=== PATIENT | female | born 1990 ===

== ENCOUNTER 2016-09-30 09:19 | Observation (INO) | payer OTHER ==
[2016-09-30 09:20] VITALS: BMI 25.8
--- NOTE | 2016-09-30 09:54 | C.PDOC ---
History Of Present Illness The patient, a 25 y/o female whose PMHx includes a congenital heart defect and PSHx includes open heart surgery, presents to the ED for evaluation of left- sided chest pain which caused her to awake from her sleep yesterday. Patient states her chest pain began yesterday and continued today with new onset of shortness of breath as well as left arm numbness and weakness, so she reports to the ED for further evaluation. Patient states her pain initially began in her back and then radiated towards her front. She describes her symptoms as a "pressure" which becomes tighter as she sits up. Patient states she spoke with Dr. Tai Rodrigez (fast food manager) yesterday and was informed that she needs a referral from her PMD (which she has yet to obtain) in order to be evaluated. She denies headache, dizziness, nausea, vomiting, neck pain, neck stiffness, and abdominal pain. Chief Complaint (Nursing): Chest Pain History Per: Patient History/Exam Limitations: no limitations Onset/Duration Of Symptoms: Hrs Current Symptoms Are (Timing): Still Present Quality: Tightness, Pressure, "Pain" Associated Symptoms: Dyspnea (shortness of breath ). denies: Nausea Additional History Per: Patient Past Medical History Reviewed: Historical Data, Nursing Documentation, Vital Signs Vital Signs: Last Vital Signs Temp 97.6 F 09/30/16 09:38 Pulse 66 09/30/16 09:38 Resp 11 L 09/30/16 09:38 BP 109/70 09/30/16 09:38 Pulse Ox 99 09/30/16 11:07 - Medical History PMH: Seizures Family History: States: Unknown Family Hx - Social History Hx Tobacco Use: No Hx Alcohol Use: No Hx Substance Use: No - Immunization History Hx Tetanus Toxoid Vaccination: No Hx Influenza Vaccination: No Hx Pneumococcal Vaccination: Yes Review Of Systems Except As Marked, All Systems Reviewed And Found Negative. Cardiovascular: Positive for: Chest Pain (left-sided) Respiratory: Positive for: Shortness of Breath Gastrointestinal: Negative for: Nausea, Vomiting, Abdominal Pain Musculoskeletal: Negative for: Neck Pain, Other (no neck stiffness) Neurological: Positive for: Weakness (left arm ), Numbness (left arm ). Negative for: Headache, Dizziness Physical Exam - Physical Exam Appears: Non-toxic, No Acute Distress Skin: Normal Color, Warm, Dry Head: Atraumatic, Normacephalic Eye(s): bilateral: Normal Inspection Nose: Normal, No Discharge Oral Mucosa: Moist Neck: Normal ROM, Supple Chest: Symmetrical, No Deformity, Tenderness (reproducible along left chest wall on palpation ) Cardiovascular: Rhythm Regular Respiratory: Normal Breath Sounds, No Rales, No Rhonchi, No Wheezing Gastrointestinal/Abdominal: Soft, No Tenderness, No Guarding, No Rebound Back: No Vertebral Tenderness, No Paraspinal Tenderness Extremity: Normal ROM, Tenderness (to right foot on palpation ), Capillary Refill (less than 2 seconds) Pulses: Left Dorsalis Pedis: Normal, Right Dorsalis Pedis: Normal Neurological/Psych: Oriented x3, Normal Speech, Normal Cognition Gait: Steady ED Course And Treatment - Laboratory Results Result Diagrams: 09/30/16 10:25 09/30/16 10:25 ECG: Interpreted By Me, Viewed By Me ECG Rhythm: Sinus Rhythm, R BBB Interpretation Of ECG: Sinus Rhythm at rate 62 BPM. Right Bundle Branch Block. Inverted T waves in inferior leads. Rate From EC O2 Sat by Pulse Oximetry: 99 Progress Note: labs, bloodwork, CXR, EKG, UA, and Echo ordered and reviewed. - Physician Consult Information Time Consulting Physician Contacted: 10:08 Physician Contacted: Tai Rodrigez Outcome Of Conversation: Case discussed with Dr. Rodrigez. He agrees with management and recommends ordering an echo. Disposition Discussed With : Tai Rodrigez Doctor Will See Patient In The: Hospital Counseled Patient/Family Regarding: Studies Performed, Diagnosis - Disposition Disposition: HOME/ ROUTINE Disposition Time: 11:34 Condition: STABLE - POA Present On Arrival: None - Clinical Impression Clinical Impression: Chest pain - Scribe Statement The provider has reviewed the documentation as recorded by the Scribe (Amy Fiore) Provider Attestation: All medical record entries made by the Scribe were at my direction and personally dictated by me. I have reviewed the chart and agree that the record accurately reflects my personal performance of the history, physical exam, medical decision making, and the department course for this patient. I have also personally directed, reviewed, and agree with the discharge instructions and disposition. Decision To Admit - Pt Status Changed To: Hospital Disposition Of: Inpatient - Admit Certification Admit to Inpatient:: After my assessment, the patient will require hospitalization for at least two midnights. This is because of the severity of symptoms shown, intensity of services needed, and/or the medical risk in this patient being treated as an outpatient. - InPatient: Physician Admission Certification: I certify that this patient requires 2 or more midnights of care for the following reason:: chest pain, congenital heart deasease, ACS - . Bed Request Type: Telemetry Patient Diagnosis: Chest pain
[2016-09-30 10:33] LABS: BASO % 0.5 % (0.0-2.0); EOS # 0.1 K/uL (0.0-0.7); HEMATOCRIT 38.1 % (34.0-47.0); LYMPH # 2.2 K/uL (1.0-4.3); LYMPH % 44.9 % (20.0-40.0); MEAN CORPUSCULAR HEMOGLOBIN 29.9 pg (27.0-31.0); MEAN CORPUSCULAR HGB CONC 33.6 g/dL (33.0-37.0); MEAN PLATELET VOLUME 8.6 fL (7.2-11.7); MONO # 0.3 K/uL (0.0-0.8); MONO % 6.7 % (0.0-10.0); NRBC % 0.1 % (0.0-2.0); RED CELL DISTRIBUTION WIDTH 13.7 % (11.5-14.5); WHITE BLOOD COUNT 4.9 K/uL (4.8-10.8)
[2016-09-30 10:41] LABS: RBC URINE 1 /hpf (0-3); URINE BILIRUBIN NEGATIVE (NEGATIVE); URINE BLOOD NEGATIVE (NEGATIVE); URINE COLOR Yellow (YELLOW); URINE GLUCOSE (UA) NORMAL (Normal); URINE KETONE NEGATIVE (NEGATIVE); URINE LEUKOCYTE ESTERASE NEG Leu/uL (Negative); URINE PROTEIN NEGATIVE (NEGATIVE); URINE UROBILINOGEN NORMAL mg/dL (0.2-1.0); WBC URINE 1 /hpf (0-5)
--- NOTE | 2016-09-30 10:50 | RAD ---
HISTORY: chest pain COMPARISON: None available. TECHNIQUE: Chest, one view. FINDINGS: LUNGS: No focal consolidation. Please note that chest x-ray has limited sensitivity for the detection of pulmonary masses. PLEURA: No significant pleural effusion identified. No definite pneumothorax . CARDIOVASCULAR: Heart size appears within normal limits. OSSEOUS STRUCTURES: No acute osseous abnormality identified. VISUALIZED UPPER ABDOMEN: Unremarkable. OTHER FINDINGS: None. IMPRESSION: No focal consolidation, significant pleural effusion, or definite pneumothorax identified.
[2016-09-30 11:13] LABS: CHLORIDE 105 mmol/L (98-107)
[2016-09-30 11:15] LABS: POTASSIUM 4.3 mmol/L (3.6-5.2); SODIUM 134 mmol/L (132-148)
[2016-09-30 11:17] LABS: ALB/GLOB RATIO 1.4 (1.0-2.1); ALKALINE PHOSPHATASE 39 U/L (38-126); AST/SGOT 29 U/L (14-36); BILIRUBIN,TOTAL 0.6 mg/dL (0.2-1.3); BLOOD UREA NITROGEN 12 mg/dL (7-17); CARBON DIOXIDE 25 mmol/L (22-30); CHOLESTEROL 185 mg/dL (0-199); GFR AFRICAN-AMERICAN > 60; GLUCOSE,RANDOM 91 mg/dL (65-105); TOTAL PROTEIN 7.4 g/dL (6.3-8.3)
[2016-09-30 11:18] LABS: ALT/SGPT 44 U/L (9-52)
[2016-09-30 11:51] LABS: THYROID STIMULATING HORMONE 1.36 mIU/L (0.46-4.68)
--- NOTE | 2016-09-30 13:59 | CP.PCM.PN ---
Subjective - Date & Time of Evaluation Date of Evaluation: 09/30/16 Time of Evaluation: 13:55 - Subjective Subjective: Internal Medicine History and Physical Dr. Britton CC: Objective - Vital Signs/Intake and Output Vital Signs (last 24 hours): Temp Pulse Resp BP Pulse Ox 97.6 F 66 11 L 109/70 99 09/30/16 09:38 09/30/16 09:38 09/30/16 09:38 09/30/16 09:38 09/30/16 11:37 Assessment and Plan - Assessment and Plan (Free Text) Plan: 1.) Atypical Chest Pain- likely pleuritic in nature 2/2 to pleuritis vs pneumonia vs AR vs PE vs GERD - Admit to telemetry - troponin x1 negative in ED < 0.0120 - SUSANA score- 1 - Heart Score 1 - Aspirin 81mg PO daily - Pain Control- motrin 600mg q6 prn and toradol 30mg q6 prn - 09/30/16 CXR- no significant consolidation, pneumothorax, effusion - 09/30/16 Ech- preliminary LV EF 62%- official read pending - 09/30/16 EKG- pending - D-dimer Negative - TSH- normal 1.36 - BNP- normal 129 - AM Labs: CBC/CMP/Troponin/Lipid Panel/Mg/Phos
--- NOTE | 2016-09-30 15:02 | CP.PCM.HP ---
<Mynor Gonzalez - Last Filed: 09/30/16 17:34> History of Present Illness - History of Present Illness History of Present Illness: Internal Medicine History and Physical Dr. Reba GIANG: Chest Pain since 5am 09/30/16 HPI: This is a 25yo F with a PMH significant for seizures and a heart defect repaired at 2mos of age presenting for medical evaluation of chest pain that began this morning at 5am. The patient reports that the pain has been constant , unchanging, non-radiating since its onset, and worse with standing. The patient notes that she also experienced left arm numbness and weakness. The numbness has resolved since she has been in the ED, but she still reports subjective weakness in her left upper extremity. The patient also notes that she has been increasingly short of breath. The pain is located at the left lower sternal border. The patient reports the pain as an 8/10. The patient has experienced similar pain in the past. She sought medical attention at that time as well, but she is unsure of the etiology of her previous pain. This pain , however, is worse than previous. The patient presently denies fever, chills, headache, palpitations, othopnea, cough, sputum production, abdominal pain, N/V/ D/C, and changes in bowel/bladder. PMH: Seizures, heart defect ("hole in the heart") Surg: Open Heart Surgery- 2mos of age Allergy: NKDA Social: Denies Tobacco/EtOH/Illicit Drugs Family: Paternal- Nondescript Heart Disease Present on Admission - Present on Admission Any Indicators Present on Admission: No History of DVT/PE: No History of Uncontrolled Diabetes: No Urinary Catheter: No Decubitus Ulcer Present: No Review of Systems - Constitutional Constitutional: absent: Chills, Fatigue, Fever - EENT Eyes: absent: Blurred Vision, Change in Vision Ears: absent: Ear Pain, Tinnitus Nose/Mouth/Throat: absent: Facial Pain, Neck Pain - Cardiovascular Cardiovascular: Chest Pain, Chest Pain at Rest, Chest Pain with Activity, Dyspnea. absent: Irregular Heart Rhythm, Leg Edema, Orthopnea, Palpitations, Radiating Pain, Rapid Heart Rate, Syncope - Respiratory Respiratory: Dyspnea, Dyspnea on Exertion, Pain with Coughing. absent: Hemoptysis, Wheezing, Chest Congestion - Gastrointestinal Gastrointestinal: absent: Abdominal Pain, Constipation, Diarrhea, Nausea - Genitourinary Genitourinary: absent: Change in Urinary Stream, Difficulty Urinating - Musculoskeletal Musculoskeletal: absent: Atrophy, Back Pain, Stiffness, Tingling - Integumentary Integumentary: absent: Lesions, Rash, Wounds - Neurological Neurological: absent: Frequent Falls, Headaches, Memory Loss, Sensory Deficit, Syncope, Tingling, Tremor, Vertigo, Weakness - Endocrine Endocrine: absent: Cold Intolorance, Heat Intolorance Past Patient History - Infectious Disease Hx of Infectious Diseases: None - Tetanus Immunizations Tetanus Immunization: Unknown - Past Medical History & Family History Past Medical History?: No - Past Social History Smoking Status: Never Smoked Chewing Tobacco Use: No Cigar Use: No Alcohol: Occasional Home Situation {Lives}: With Family - CARDIAC Hx Heart Murmur: Yes Other/Comment: Cogenital heart defect - PULMONARY Hx Respiratory Disorders: No - NEUROLOGICAL Hx Seizures: Yes (last seizure 3 years ago) - HEENT Hx HEENT Problems: No - RENAL Hx Chronic Kidney Disease: No - ENDOCRINE/METABOLIC Hx Endocrine Disorders: No - HEMATOLOGICAL/ONCOLOGICAL Hx Blood Disorders: No - INTEGUMENTARY Hx Dermatological Problems: No - MUSCULOSKELETAL/RHEUMATOLOGICAL Hx Musculoskeletal Disorders: No - GASTROINTESTINAL Hx Gastrointestinal Disorders: No - GENITOURINARY/GYNECOLOGICAL Hx Genitourinary Disorders: No - PSYCHIATRIC Hx Psychophysiologic Disorder: No Hx Substance Use: No - SURGICAL HISTORY Hx Surgeries: Yes Hx Open Heart Surgery: Yes (2mos of age ) - ANESTHESIA Hx Anesthesia: Yes Hx Anesthesia Reactions: No Hx Malignant Hyperthermia: No Meds Allergies/Adverse Reactions: Allergies Allergy/AdvReac Type Severity Reaction Status Date / Time No Known Allergies Allergy Verified 09/15/16 21:06 Physical Exam - Constitutional Appears: Well, No Acute Distress - Head Exam Head Exam: ATRAUMATIC, NORMAL INSPECTION, NORMOCEPHALIC - Eye Exam Eye Exam: EOMI, Normal appearance - ENT Exam ENT Exam: Mucous Membranes Moist - Neck Exam Neck exam: Positive for: Full Rom, Normal Inspection. Negative for: Lymphadenopathy, Tenderness - Respiratory Exam Respiratory Exam: Rhonchi, NORMAL BREATHING PATTERN. absent: Accessory Muscle Use, Clear to Auscultation Bilateral, Rales, Wheezes, Respiratory Distress, Stridor Additional comments: rhonchi heard B/L bases - Cardiovascular Exam Cardiovascular Exam: REGULAR RHYTHM, RRR, +S1, +S2. absent: Diastolic murmur, Systolic Murmur Additional comments: reproducible point tenderness left lower sternal border, mid clavicular line - GI/Abdominal Exam GI & Abdominal Exam: Normal Bowel Sounds, Soft. absent: Distended, Firm, Guarding, Hernia, Rebound, Rigid, Tenderness - Extremities Exam Extremities exam: Positive for: normal capillary refill, normal inspection, pedal pulses present. Negative for: calf tenderness, pedal edema, tenderness Additional comments: 5/5 strength B/L upper and lower extremity sensation intact B/L upper and lower extremity - Neurological Exam Neurological exam: Alert, CN II-XII Intact, Normal Gait, Oriented x3 - Skin Skin Exam: Dry, Intact, Normal Color, Warm Results - Vital Signs Recent Vital Signs: Last Vital Signs Temp 97.6 F 09/30/16 09:38 Pulse 66 09/30/16 09:38 Resp 11 L 09/30/16 09:38 BP 109/70 09/30/16 09:38 Pulse Ox 99 09/30/16 11:37 - Labs Result Diagrams: 09/30/16 10:25 09/30/16 10:25 Assessment & Plan - Assessment and Plan (Free Text) Assessment: This is a 25yo F with a PMH significant for seizures and a heart defect repaired at 2mos of age presenting for medical evaluation of chest pain that began this morning at 5am. Plan: 1.) Atypical Chest Pain- likely pleuritic in nature 2/2 to pleuritis vs pneumonia vs CO vs PE vs GERD - Admit to inpatient telemetry - Troponin x1 negative in ED < 0.0120 - SUSANA score- 1 - Heart Score 1 - Aspirin 325mg PO STAT - Aspirin 81mg PO daily - Pain Control- toradol 30mg q6 prn - 09/30/16 CXR- no significant consolidation, pneumothorax, effusion - 09/30/16 Echo- preliminary LV EF 62%- official read pending - 09/30/16 EKG- right bundle branch block- official read pending (no prior EKG for comparison) - D-dimer Negative - TSH- normal 1.36 - BNP- normal 129 - UDS ordered - Flu A&B Ab ordered - Repeat EKG - Cardiology Consult- Dr. Rodrigez - AM Labs: CBC/CMP/Troponin/Lipid Panel/Mg/Phos 2.) Shortness of Breath- likely 2/2 to URI vs Influenza vs PE vs CO - 09/30/16 Echo- preliminary LV EF 62%- official read pending - 09/30/16 EKG- right bundle branch block- official read pending (no prior EKG for comparison) - 09/30/16 CXR- no significant consolidation, pneumothorax, effusion - D-dimer Negative - Duoneb q2 PRN SOB - Flu A&B Ab ordered 3.) Epilepsy - continue home Carbamazepine 200mg PO TID 4.) Prophylaxis - DVT- Heparin 5000u SC q12 - GI- Protonix 40mg IV daily - Fever- Tylenol 650mg PO q6 PRN - Constipation- Colace 100mg PO BID PRN - Nausea- Zofran 4mg IV q6 PRN - Diet- Heart Healthy Diet - Insomnia- Benadryl 25mg PO HS PRN Ovidio Carlos PGY1 [id number] - Date & Time Date: 09/30/16 Time: 15:05 Decision To Admit - Pt Status Changed To: Hospital Disposition Of: Inpatient - Admit Certification Admit to Inpatient:: After my assessment, the patient will require hospitalization for at least two midnights. This is because of the severity of symptoms shown, intensity of services needed, and/or the medical risk in this patient being treated as an outpatient. - InPatient: Physician Admission Certification:: chest pain r/o ACS - . Bed Request Type: Telemetry Admitting Physician: Josue Britton <Josue Britton - Last Filed: 09/30/16 18:52> Results - Vital Signs Recent Vital Signs: Last Vital Signs Temp 97.6 F 09/30/16 09:38 Pulse 66 09/30/16 09:38 Resp 11 L 09/30/16 09:38 BP 109/70 09/30/16 09:38 Pulse Ox 99 09/30/16 11:37 - Labs Result Diagrams: 09/30/16 10:25 09/30/16 10:25 Labs: Laboratory Results - last 24 hr 09/30/16 09/30/16 16:47 Unknown Total Creatine Kinase 47 CK-MB (Mass) < 0.22 Troponin I, Quant < 0.0120 Influenza Typ A,B (EIA) Negative for flu a/b Attending/Attestation - Attestation I have personally seen and examined this patient.: Yes I have fully participated in the care of the patient.: Yes I have reviewed all pertinent clinical information: Yes Notes (Text): Medical attending: Patient was seen and examined by me, agrees the above note by medical technician assistant. The patient is coming in with regards to chest pain, from what I understand she has a history of some type of congenital heart defect that required surgery at a very young age. Her lab work that was acquired in the ER was stable. We can get a 2-D echo, she will be having a cardiology evaluation as well. thank you Josue Britton
--- NOTE | 2016-09-30 15:35 | CARD ---
APPROVED REPORT EXAM: Two-dimensional and M-mode echocardiogram with Doppler and color Doppler. Other Information Quality : GoodRhythm : INDICATION Abnormal EKG/Arrhythmia Chest Pain Congenital Heart Disease M-Mode DIMENSIONS RVDd1.79 (2.1-3.2cm)Left Atrium (MM)4.25 (2.5-4.0cm) IVSd0.58 (0.7-1.1cm)Aortic Root2.89 (2.2-3.7cm) LVDd5.65 (4.0-5.6cm)Aortic Cusp Exc.2.16 (1.5-2.0cm) PWd0.64 (0.7-1.1cm)FS (%) 34 % LVDs3.74 (2.0-3.8cm)LVEF (%)62 (>50%) Mitral Valve MV E Ifhpyjhn40.3cm/sMV A Kytgzcej07.0cm/sE/A ratio1.3 TDI E/Lateral E'0.0E/Medial E'0.0 Tricuspid Valve TR Peak [id number]/sTR Peak [id number] LEFT VENTRICLE lv is upper normal in size. There is normal left ventricular wall thickness. The Ejection Fraction is 55-60%. There is normal LV segmental wall motion. The left ventricular diastolic function is normal. RIGHT VENTRICLE The right ventricle is normal size. The right ventricular systolic function is normal. ATRIA The left atrium is mildly dilated. The right atrium size is normal. Interatrial septal thickening is noted. AORTIC VALVE The aortic valve is normal in structure. There is trace aortic regurgitation. MITRAL VALVE The mitral valve is normal in structure. Mitral regurgitation is mild. TRICUSPID VALVE The tricuspid valve is normal in structure. There is mild tricuspid regurgitation. Right ventricular systolic pressure is estimated at 26 mmHg. There is no pulmonary hypertension. PULMONIC VALVE The pulmonary valve is normal in structure. There is mild pulmonic valvular regurgitation. GREAT VESSELS The aortic root is normal in size. The IVC is normal in size and collapses >50% with inspiration. PERICARDIAL EFFUSION There is no pericardial effusion. <Conclusion> lv is upper normal in size. There is normal left ventricular wall thickness. The Ejection Fraction is 55-60%. The left ventricular diastolic function is normal. The left atrium is mildly dilated. Interatrial septal thickening is noted. There is trace aortic regurgitation. Mitral regurgitation is mild. There is mild tricuspid regurgitation. Right ventricular systolic pressure is estimated at 26 mmHg. There is no pulmonary hypertension.
[2016-09-30] MEDS ORDERED: Albuterol-Ipratrop 3 mg / 0.5 (3 ml) UD INH PRN (17:44)
[2016-10-01 01:01] VITALS: RESP 20
[2016-10-01] MEDS ORDERED: Pneumococcal 23-Valent Vaccine IM ONE (03:59)
[2016-10-01 07:52] LABS: BASO % 0.5 % (0.0-2.0); EOS # 0.1 K/uL (0.0-0.7); EOS % 2.6 % (0.0-4.0); HEMATOCRIT 37.7 % (34.0-47.0); LYMPH # 2.6 K/uL (1.0-4.3); LYMPH % 48.3 % (20.0-40.0); MEAN CORPUSCULAR HEMOGLOBIN 29.5 pg (27.0-31.0); MEAN CORPUSCULAR HGB CONC 33.5 g/dL (33.0-37.0); MEAN PLATELET VOLUME 8.9 fL (7.2-11.7); MONO # 0.4 K/uL (0.0-0.8); MONO % 6.8 % (0.0-10.0); RED CELL DISTRIBUTION WIDTH 13.5 % (11.5-14.5); WHITE BLOOD COUNT 5.3 K/uL (4.8-10.8)
[2016-10-01 08:04] LABS: CHLORIDE 106 mmol/L (98-107)
[2016-10-01 08:05] LABS: POTASSIUM 3.8 mmol/L (3.6-5.2); SODIUM 141 mmol/L (132-148)
[2016-10-01 08:07] LABS: ALB/GLOB RATIO 1.3 (1.0-2.1); ALKALINE PHOSPHATASE 39 U/L (38-126); ALT/SGPT 43 U/L (9-52); AST/SGOT 15 U/L (14-36); BILIRUBIN,TOTAL 0.2 mg/dL (0.2-1.3); BLOOD UREA NITROGEN 13 mg/dL (7-17); CARBON DIOXIDE 24 mmol/L (22-30); CHOLESTEROL 182 mg/dL (0-199); GFR AFRICAN-AMERICAN > 60; GLUCOSE,RANDOM 92 mg/dL (65-105); PHOSPHOROUS 4.3 mg/dL (2.5-4.5); TOTAL PROTEIN 7.1 g/dL (6.3-8.3)
[2016-10-01 08:08] LABS: CALCIUM 8.4 mg/dl (8.6-10.4); MAGNESIUM 1.9 mg/dL (1.6-2.3)
--- NOTE | 2016-10-01 16:21 | CP.PCM.DIS ---
<Aracely Sparrow - Last Filed: 10/05/16 08:34> Provider - Provider Date of Admission: 09/30/16 11:37 Attending physician: Josue Britton DO Primary care physician: None Consults: Dr. Rodrigez Time Spent in preparation of Discharge (in minutes): 45 Hospital Course - Lab Results Lab Results: Most Recent Lab Values WBC 5.3 K/uL (4.8-10.8) 10/01/16 07:43 RBC 4.28 Mil/uL (3.80-5.20) 10/01/16 07:43 Hgb 12.6 g/dL (11.0-16.0) 10/01/16 07:43 Hct 37.7 % (34.0-47.0) 10/01/16 07:43 MCV 88.0 fL (81.0-99.0) 10/01/16 07:43 MCH 29.5 pg (27.0-31.0) 10/01/16 07:43 MCHC 33.5 g/dL (33.0-37.0) 10/01/16 07:43 RDW 13.5 % (11.5-14.5) 10/01/16 07:43 Plt Count 192 K/uL (130-400) 10/01/16 07:43 MPV 8.9 fL (7.2-11.7) 10/01/16 07:43 Neut % (Auto) 41.8 % (50.0-75.0) L 10/01/16 07:43 Lymph % (Auto) 48.3 % (20.0-40.0) H 10/01/16 07:43 [place] % (Auto) 6.8 % (0.0-10.0) 10/01/16 07:43 Eos % (Auto) 2.6 % (0.0-4.0) 10/01/16 07:43 Baso % (Auto) 0.5 % (0.0-2.0) 10/01/16 07:43 Neut # 2.2 K/uL (1.8-7.0) 10/01/16 07:43 Lymph # 2.6 K/uL (1.0-4.3) 10/01/16 07:43 [place] # 0.4 K/uL (0.0-0.8) 10/01/16 07:43 Eos # 0.1 K/uL (0.0-0.7) 10/01/16 07:43 Baso # 0.0 K/uL (0.0-0.2) 10/01/16 07:43 APTT 40 SECONDS (21-34) H 10/01/16 07:43 D-Dimer, Quantitative < 200 ng/mlDDU (0-243) 09/30/16 10:25 Sodium 141 mmol/L (132-148) 10/01/16 07:43 Potassium 3.8 mmol/L (3.6-5.2) 10/01/16 07:43 Chloride 106 mmol/L (98-107) 10/01/16 07:43 Carbon Dioxide 24 mmol/L (22-30) 10/01/16 07:43 Anion Gap 14 (10-20) 10/01/16 07:43 BUN 13 mg/dL (7-17) 10/01/16 07:43 Creatinine 0.7 MG/DL (0.7-1.2) 10/01/16 07:43 Est GFR ( Amer) > 60 10/01/16 07:43 Est GFR (Non-Af Amer) > 60 10/01/16 07:43 Random Glucose 92 mg/dL (65-105) 10/01/16 07:43 Calcium 8.4 mg/dl (8.6-10.4) L 10/01/16 07:43 Phosphorus 4.3 mg/dL (2.5-4.5) 10/01/16 07:43 Magnesium 1.9 mg/dL (1.6-2.3) 10/01/16 07:43 Total Bilirubin 0.2 mg/dL (0.2-1.3) 10/01/16 07:43 AST 15 U/L (14-36) 10/01/16 07:43 ALT 43 U/L (9-52) 10/01/16 07:43 Alkaline Phosphatase 39 U/L (38-126) 10/01/16 07:43 Total Creatine Kinase 49 U/L (30-135) 09/30/16 21:22 CK-MB (Mass) < 0.22 ng/mL (0.0-3.38) 09/30/16 21:22 Troponin I < 0.0120 ng/mL (0.00-0.120) 09/30/16 10:25 Troponin I, Quant < 0.0120 ng/mL (0.00-0.120) 09/30/16 21:22 NT-Pro-B Natriuret Pep 129 pg/mL (0-450) 09/30/16 10:25 Total Protein 7.1 g/dL (6.3-8.3) 10/01/16 07:43 Albumin 4.1 g/dL (3.5-5.0) 10/01/16 07:43 Globulin 3.1 gm/dL (2.2-3.9) 10/01/16 07:43 Albumin/Globulin Ratio 1.3 (1.0-2.1) 10/01/16 07:43 Triglycerides 71 mg/dL (0-149) D 10/01/16 07:43 Cholesterol 182 mg/dL (0-199) 10/01/16 07:43 LDL Cholesterol Direct 109 mg/dL (0-129) 10/01/16 07:43 HDL Cholesterol 49 mg/dL (30-70) 10/01/16 07:43 TSH 3rd Generation 1.36 mIU/L (0.46-4.68) 09/30/16 10:25 Urine Color Yellow (YELLOW) 09/30/16 10:25 Urine Clarity Hazy (Clear) 09/30/16 10:25 Urine pH 6.0 (5.0-8.0) 09/30/16 10:25 Ur Specific [place] 1.024 (1.003-1.030) 09/30/16 10:25 Urine Protein Negative mg/dL (NEGATIVE) 09/30/16 10:25 Urine Glucose (UA) Normal mg/dL (Normal) 09/30/16 10:25 Urine Ketones Negative mg/dL (NEGATIVE) 09/30/16 10:25 Urine Blood Negative (NEGATIVE) 09/30/16 10:25 Urine Nitrate Negative (NEGATIVE) 09/30/16 10:25 Urine Bilirubin Negative (NEGATIVE) 09/30/16 10:25 Urine Urobilinogen Normal mg/dL (0.2-1.0) 09/30/16 10:25 Ur Leukocyte Esterase Neg Tim/uL (Negative) 09/30/16 10:25 Urine WBC (Auto) 1 /hpf (0-5) 09/30/16 10:25 Urine RBC (Auto) 1 /hpf (0-3) 09/30/16 10:25 Ur Squamous Epith Cells 6 /hpf (0-5) H 09/30/16 10:25 Urine Sperm (Auto) Rare /hpf (NONE) H 09/30/16 10:25 Urine HCG, Qual Negative (NEGATIVE) 10/01/16 13:36 Urine Opiates Screen Negative (NEGATIVE) 09/30/16 20:25 Urine Methadone Screen Negative (NEGATIVE) 09/30/16 20:25 Ur Barbiturates Screen Negative (NEGATIVE) 09/30/16 20:25 Ur Phencyclidine Scrn Negative (NEGATIVE) 09/30/16 20:25 Ur Amphetamines Screen Negative (NEGATIVE) 09/30/16 20:25 U Benzodiazepines Scrn Negative (NEGATIVE) 09/30/16 20:25 U Oth Cocaine Metabols Negative (NEGATIVE) 09/30/16 20:25 U Cannabinoids Screen Negative (NEGATIVE) 09/30/16 20:25 Influenza Typ A,B (EIA) Negative for flu a/b (NEGATIVE) 09/30/16 Unknown - Hospital Course Hospital Course: As per H&P "This is a 25yo F with a PMH significant for seizures and a heart defect repaired at 2mos of age presenting for medical evaluation of chest pain that began this morning at 5am. The patient reports that the pain has been constant, unchanging, non-radiating since its onset, and worse with standing. The patient notes that she also experienced left arm numbness and weakness. The numbness has resolved since she has been in the ED, but she still reports subjective weakness in her left upper extremity. The patient also notes that she has been increasingly short of breath. The pain is located at the left lower sternal border. The patient reports the pain as an 8/10. The patient has experienced similar pain in the past. She sought medical attention at that time as well, but she is unsure of the etiology of her previous pain. This pain , however, is worse than previous. The patient presently denies fever, chills, headache, palpitations, othopnea, cough, sputum production, abdominal pain, N/V/ D/C, and changes in bowel/bladder." Patient admitted to TELE. Patient had negative troponin x 3 and EKG had no acute changes x 3. Patient has a negative d-dimer and patient's Echo an EF 55-60 % with normal LV wall thickness and no pulmonary HTN. Patient's chest CT showed chronic chest wall and sternal deformity consistent with variation of pectus excavatum and no evidence of IS lung disease. Patient's CXR was also benign. Patient stable for discharge as per Dr. Britton 10/01/16. Patient to continue taking home medication: Carbamazepine 200mg PO 1 tab TID DIsp#90. Patient to follow up with PMD within 7 days and Clinical Specialist within 10 days. If symptoms recur or worsen patient to visit ED immediately. Patient understands and agrees. Discharge Exam - Head Exam Head Exam: ATRAUMATIC, NORMAL INSPECTION, NORMOCEPHALIC - Eye Exam Eye Exam: Normal appearance. absent: Conjunctival injection, Scleral icterus Pupil Exam: NORMAL ACCOMODATION - ENT Exam ENT Exam: Mucous Membranes Moist - Neck Exam Neck exam: Normal Inspection - Respiratory Exam Respiratory Exam: Rhonchi (slight), NORMAL BREATHING PATTERN. absent: Accessory Muscle Use, Chest Wall Tenderness, Prolonged Expiratory Phase, Rales, Wheezes, Respiratory Distress - Cardiovascular Exam Cardiovascular Exam: REGULAR RHYTHM, RRR, +S1, +S2. absent: Diastolic murmur, Systolic Murmur - GI/Abdominal Exam GI & Abdominal Exam: Normal Bowel Sounds, Soft. absent: Distended, Firm, Guarding, Rigid, Tenderness - Extremities Exam Extremities exam: normal capillary refill, normal inspection, pedal pulses present - Back Exam Back exam: NORMAL INSPECTION. absent: rash noted - Neurological Exam Neurological exam: Alert, CN II-XII Intact, Normal Gait, Oriented x3 - Skin Skin Exam: Dry, Intact, Normal Color, Warm Discharge Plan - Discharge Medications Prescriptions: carBAMazepine [Tegretol] 200 mg PO TID #90 tab - Follow Up Plan Condition: STABLE Disposition: HOME/ ROUTINE Instructions: Carbamazepine (By mouth), Chest Pain (DC), Heart Healthy Diet (DC ) Additional Instructions: Patient stable for discharge as per Dr. Britton. Patient to continue taking home medication: Carbamazepine 200mg PO 1 tab TID DIsp#90. Patient to follow up with PMD within 7 days and Clinical Specialist within 10 days. If symptoms recur or worsen patient to visit ED immediately. Patient understands and agrees. Referrals: Josue Britton DO [Staff Provider] - Tai Rodrigez MD [Staff Provider] - <Josue Britton - Last Filed: 10/12/16 07:55> Provider - Provider Date of Admission: 09/30/16 11:37 Attending physician: Josue Britton DO Hospital Course - Lab Results Lab Results: Most Recent Lab Values WBC 5.3 K/uL (4.8-10.8) 10/01/16 07:43 RBC 4.28 Mil/uL (3.80-5.20) 10/01/16 07:43 Hgb 12.6 g/dL (11.0-16.0) 10/01/16 07:43 Hct 37.7 % (34.0-47.0) 10/01/16 07:43 MCV 88.0 fL (81.0-99.0) 10/01/16 07:43 MCH 29.5 pg (27.0-31.0) 10/01/16 07:43 MCHC 33.5 g/dL (33.0-37.0) 10/01/16 07:43 RDW 13.5 % (11.5-14.5) 10/01/16 07:43 Plt Count 192 K/uL (130-400) 10/01/16 07:43 MPV 8.9 fL (7.2-11.7) 10/01/16 07:43 Neut % (Auto) 41.8 % (50.0-75.0) L 10/01/16 07:43 Lymph % (Auto) 48.3 % (20.0-40.0) H 10/01/16 07:43 [place] % (Auto) 6.8 % (0.0-10.0) 10/01/16 07:43 Eos % (Auto) 2.6 % (0.0-4.0) 10/01/16 07:43 Baso % (Auto) 0.5 % (0.0-2.0) 10/01/16 07:43 Neut # 2.2 K/uL (1.8-7.0) 10/01/16 07:43 Lymph # 2.6 K/uL (1.0-4.3) 10/01/16 07:43 [place] # 0.4 K/uL (0.0-0.8) 10/01/16 07:43 Eos # 0.1 K/uL (0.0-0.7) 10/01/16 07:43 Baso # 0.0 K/uL (0.0-0.2) 10/01/16 07:43 APTT 40 SECONDS (21-34) H 10/01/16 07:43 D-Dimer, Quantitative < 200 ng/mlDDU (0-243) 09/30/16 10:25 Sodium 141 mmol/L (132-148) 10/01/16 07:43 Potassium 3.8 mmol/L (3.6-5.2) 10/01/16 07:43 Chloride 106 mmol/L (98-107) 10/01/16 07:43 Carbon Dioxide 24 mmol/L (22-30) 10/01/16 07:43 Anion Gap 14 (10-20) 10/01/16 07:43 BUN 13 mg/dL (7-17) 10/01/16 07:43 Creatinine 0.7 MG/DL (0.7-1.2) 10/01/16 07:43 Est GFR ( Amer) > 60 10/01/16 07:43 Est GFR (Non-Af Amer) > 60 10/01/16 07:43 Random Glucose 92 mg/dL (65-105) 10/01/16 07:43 Calcium 8.4 mg/dl (8.6-10.4) L 10/01/16 07:43 Phosphorus 4.3 mg/dL (2.5-4.5) 10/01/16 07:43 Magnesium 1.9 mg/dL (1.6-2.3) 10/01/16 07:43 Total Bilirubin 0.2 mg/dL (0.2-1.3) 10/01/16 07:43 AST 15 U/L (14-36) 10/01/16 07:43 ALT 43 U/L (9-52) 10/01/16 07:43 Alkaline Phosphatase 39 U/L (38-126) 10/01/16 07:43 Total Creatine Kinase 49 U/L (30-135) 09/30/16 21:22 CK-MB (Mass) < 0.22 ng/mL (0.0-3.38) 09/30/16 21:22 Troponin I < 0.0120 ng/mL (0.00-0.120) 10/01/16 17:51 Troponin I, Quant < 0.0120 ng/mL (0.00-0.120) 09/30/16 21:22 NT-Pro-B Natriuret Pep 129 pg/mL (0-450) 09/30/16 10:25 Total Protein 7.1 g/dL (6.3-8.3) 10/01/16 07:43 Albumin 4.1 g/dL (3.5-5.0) 10/01/16 07:43 Globulin 3.1 gm/dL (2.2-3.9) 10/01/16 07:43 Albumin/Globulin Ratio 1.3 (1.0-2.1) 10/01/16 07:43 Triglycerides 71 mg/dL (0-149) D 10/01/16 07:43 Cholesterol 182 mg/dL (0-199) 10/01/16 07:43 LDL Cholesterol Direct 109 mg/dL (0-129) 10/01/16 07:43 HDL Cholesterol 49 mg/dL (30-70) 10/01/16 07:43 TSH 3rd Generation 1.36 mIU/L (0.46-4.68) 09/30/16 10:25 Urine Color Yellow (YELLOW) 09/30/16 10:25 Urine Clarity Hazy (Clear) 09/30/16 10:25 Urine pH 6.0 (5.0-8.0) 09/30/16 10:25 Ur Specific [place] 1.024 (1.003-1.030) 09/30/16 10:25 Urine Protein Negative mg/dL (NEGATIVE) 09/30/16 10:25 Urine Glucose (UA) Normal mg/dL (Normal) 09/30/16 10:25 Urine Ketones Negative mg/dL (NEGATIVE) 09/30/16 10:25 Urine Blood Negative (NEGATIVE) 09/30/16 10:25 Urine Nitrate Negative (NEGATIVE) 09/30/16 10:25 Urine Bilirubin Negative (NEGATIVE) 09/30/16 10:25 Urine Urobilinogen Normal mg/dL (0.2-1.0) 09/30/16 10:25 Ur Leukocyte Esterase Neg Tim/uL (Negative) 09/30/16 10:25 Urine WBC (Auto) 1 /hpf (0-5) 09/30/16 10:25 Urine RBC (Auto) 1 /hpf (0-3) 09/30/16 10:25 Ur Squamous Epith Cells 6 /hpf (0-5) H 09/30/16 10:25 Urine Sperm (Auto) Rare /hpf (NONE) H 09/30/16 10:25 Urine HCG, Qual Negative (NEGATIVE) 10/01/16 13:36 Urine Opiates Screen Negative (NEGATIVE) 09/30/16 20:25 Urine Methadone Screen Negative (NEGATIVE) 09/30/16 20:25 Ur Barbiturates Screen Negative (NEGATIVE) 09/30/16 20:25 Ur Phencyclidine Scrn Negative (NEGATIVE) 09/30/16 20:25 Ur Amphetamines Screen Negative (NEGATIVE) 09/30/16 20:25 U Benzodiazepines Scrn Negative (NEGATIVE) 09/30/16 20:25 U Oth Cocaine Metabols Negative (NEGATIVE) 09/30/16 20:25 U Cannabinoids Screen Negative (NEGATIVE) 09/30/16 20:25 Influenza Typ A,B (EIA) Negative for flu a/b (NEGATIVE) 09/30/16 Unknown Attending/Attestation - Attestation I have personally seen and examined this patient.: Yes I have fully participated in the care of the patient.: Yes I have reviewed all pertinent clinical information, including history, physical exam and plan: Yes Notes (Text): 10/12/16 07:53 Medical Attending: Patient was seen and examined by me. Please note, this is a late signing of the DC summary. Agree with the above note by the resident. Patient will need to follow up out patient.
[2016-10-01 16:24] VITALS: O2SAT 97
--- NOTE | 2016-10-01 16:28 | CT ---
PROCEDURE: CT Chest without contrast HISTORY: r/o interstitial lung disease COMPARISON: None. TECHNIQUE: Contiguous axial images were obtained through the chest without intravenous contrast enhancement. Sagittal and coronal reconstructions were performed. Radiation dose (DLP): 285 mGy-cm. FINDINGS: LUNGS: Clear lungs. Visualized airway clear. MEDIASTINUM: Unremarkable thoracic aorta. No aneurysm. Normal sized heart. Main pulmonary artery unremarkable. No vascular congestion. No lymphadenopathy. PLEURA: No pleural fluid. No pneumothorax. BONES: There is an anterior chest wall and sternal deformity consistent with a variation of pectus excavatum. Sternal wires were also seen. There is asymmetry in the chest with the low right rodriguez thorax larger than the left. UPPER ABDOMEN: Grossly unremarkable. OTHER FINDINGS: None. IMPRESSION: Chronic chest wall and sternal deformity consistent with variation of pectus excavatum. No evidence of interstitial lung disease.
[2016-10-01 17:49] VITALS: BP 108/67; PULSE 73; TEMP 97
[2016-10-02] MEDS ORDERED: Influenza Virus Vaccine 45 mcg/0.5 ml Syr IM ONE (10:00)
[2016-10-02] MEDS ORDERED: Pneumococcal 23-Valent Vaccine IM ONE (10:00)
--- NOTE | 2016-10-02 11:20 | CARD ---
APPROVED REPORT EKG Measurement Heart [id number] [id number] <Conclusion> Normal sinus rhythm Right bundle branch block Minimal voltage criteria for LVH, may be normal variant Abnormal ECG
--- NOTE | 2016-10-02 11:20 | CARD ---
APPROVED REPORT EKG Measurement Heart [id number] [id number] <Conclusion> Normal sinus rhythm Right bundle branch block Minimal voltage criteria for LVH, may be normal variant Abnormal ECG
== END 2016-10-01 21:51 | disposition home or self-care (01) ==
LOC: C.ER 09:19 → C.9E 11:37 → INTOOBSV 11:37 → C.6T 22:52
PROVIDERS: ADMIT Hospitalist; ATTEND Hospitalist
DX: R07.89 Other chest pain (principal); G40.909 Epilepsy, unspecified, not intractable, without status epilepticus; Z82.49 Family history of ischemic heart disease and other diseases of the circulatory system; I45.10 Unspecified right bundle-branch block
CPT/HCPCS: 36415; 71010; 71250; 80053; 80061; 80324; 80345; 80346; 80349; 80353; 80358; 80361; 81001; 83735; 83880; 83992; 84100; 84443; 84484; 84703; 85025; 85378; 85730; 87804; 93005; 93306; 96372; 96374; 99285; C9113; G0378; J1644; J1885; J2405

== ENCOUNTER 2016-12-09 20:44 | Emergency (ER) | payer OTHER ==
[2016-12-09 20:45] VITALS: BMI 28.4
[2016-12-09 21:00] VITALS: O2SAT 99
[2016-12-09] MEDS ORDERED: Tetanus/Diphtheria Toxoids 0.5 ml Syringe IM ONE ×2 (21:33→21:42)
[2016-12-09] MEDS ORDERED: Bacitracin 500 Units/gm Oint Foilpak UD TOP STA (21:33)
[2016-12-09] MEDS ORDERED: Bacitracin 500 Units/gm Oint Foilpak UD ONE (21:35)
--- NOTE | 2016-12-09 21:35 | C.PDOC ---
History Of Present Illness 26 year old female presents to the ED with complaints of left great toe pain. Patient states on 12/05/16 she accidentally closed a door on her toe which slightly lifted her left great toenail up causing her to bleed under the nail. Denies change in sensation, removal of toenail, or any other complaints at this time. Time Seen by Provider: 12/09/16 21:04 Chief Complaint (Nursing): Lower Extremity Problem/Injury History Per: Patient History/Exam Limitations: no limitations Onset/Duration Of Symptoms: Days Current Symptoms Are (Timing): Still Present Severity: Mild Past Medical History Reviewed: Historical Data, Nursing Documentation, Vital Signs Vital Signs: Last Vital Signs Temp 98.6 F 12/09/16 21:48 Pulse 74 12/09/16 21:48 Resp 18 12/09/16 21:48 BP 111/79 12/09/16 21:48 Pulse Ox 99 12/09/16 23:20 - Medical History PMH: Anemia, Seizures (last seizure 6 years ago) Family History: States: Unknown Family Hx - Social History Hx Tobacco Use: No Hx Alcohol Use: No Hx Substance Use: No - Immunization History Hx Tetanus Toxoid Vaccination: No Hx Influenza Vaccination: No Hx Pneumococcal Vaccination: Yes Review Of Systems Except As Marked, All Systems Reviewed And Found Negative. Constitutional: Negative for: Fever, Chills Musculoskeletal: Positive for: Other (+Left great toe pain) Neurological: Negative for: Weakness, Numbness Physical Exam - Physical Exam Appears: Non-toxic, No Acute Distress Skin: Normal Color, Warm, Dry Head: Atraumatic, Normacephalic Oral Mucosa: Moist Chest: Symmetrical Respiratory: No Accessory Muscle Use Extremity: Normal ROM, No Pedal Edema, No Calf Tenderness, Capillary Refill (< 2 seconds), No Deformity, Other (+Dried blood under the left great toe nail. no signs of infection. +Varicose veins bilaterally) Pulses: Left Dorsalis Pedis: Normal, Right Dorsalis Pedis: Normal Neurological/Psych: Oriented x3, Normal Speech, Normal Cognition ED Course And Treatment O2 Sat by Pulse Oximetry: 99 (Room air) Pulse Ox Interpretation: Normal Progress Note: Patient given Tetanus Vaccine and Bacitracin was applied. Patient advised to follow up with her Medical Office Specialist and Vascular Surgeon in 1-2 days. Disposition - Disposition Referrals: Cristhian Banda Jr., MD [Staff Provider] - Eduar Guillory DPM [Staff Provider] - Disposition: HOME/ ROUTINE Disposition Time: 21:34 Condition: STABLE Additional Instructions: Follow up with your PMD, Medical Office Specialist and Vascular Surgeon within 1-2 days. Return to ED if feel worse. Prescriptions: Bacitracin OINT 1 applic TP TID #45 g Instructions: Nail Avulsion (ED) - Clinical Impression Clinical Impression: Nail avulsion, toe - PA / LONG DISTANCE BILLING OPERATOR / Resident Statement MD/DO has reviewed & agrees with the documentation as recorded. - Scribe Statement The provider has reviewed the documentation as recorded by the Scribe Huey Hannon. All medical record entries made by the Scribe were at my direction and personally dictated by me. I have reviewed the chart and agree that the record accurately reflects my personal performance of the history, physical exam, medical decision making, and the department course for this patient. I have also personally directed, reviewed, and agree with the discharge instructions and disposition.
[2016-12-09 21:49] VITALS: BP 111/79; PULSE 74; RESP 18; TEMP 98.6
== END 2016-12-09 21:47 | disposition home or self-care (01) ==
LOC: C.ER 20:44
DX: S91.202A Unspecified open wound of left great toe with damage to nail, initial encounter (principal); W22.8XXA Striking against or struck by other objects, initial encounter

== ENCOUNTER 2017-01-04 17:38 | Emergency (ER) | payer OTHER ==
[2017-01-04 17:39] VITALS: BMI 28.4
[2017-01-04] MEDS ORDERED: Sodium Chloride 0.9% 1,000 ML IV ONE (19:30)
--- NOTE | 2017-01-04 19:30 | C.PDOC ---
History Of Present Illness Patient presents to ER with a complaint of nausea, vomiting, and abdominal pain for the past 2 days. Patient's LMP was 2-3 weeks ago. Patient states she took 2 at home test, one was positive, the other negative. Denies fever, chills or diarrhea. Time Seen by Provider: 01/04/17 19:30 Chief Complaint (Nursing): Abdominal Pain History Per: Patient History/Exam Limitations: no limitations Onset/Duration Of Symptoms: Days (2) Current Symptoms Are (Timing): Still Present Location Of Pain/Discomfort: Other (Abdominal) Associated Symptoms: Nausea, Vomiting. denies: Fever, Chills, Diarrhea Last Menstral Period: 2-3 weeks ago Past Medical History Reviewed: Historical Data, Nursing Documentation, Vital Signs Vital Signs: Last Vital Signs Temp 98.3 F 01/04/17 17:49 Pulse 70 01/04/17 17:49 Resp 18 01/04/17 17:49 BP 100/66 01/04/17 17:49 Pulse Ox 98 01/04/17 20:40 - Medical History PMH: Anemia, Seizures (last seizure 6 years ago) Family History: States: No Known Family Hx - Social History Hx Tobacco Use: No Hx Alcohol Use: No Hx Substance Use: No - Immunization History Hx Tetanus Toxoid Vaccination: No Hx Influenza Vaccination: Yes Hx Pneumococcal Vaccination: No Review Of Systems Constitutional: Negative for: Fever, Chills Gastrointestinal: Positive for: Nausea, Vomiting, Abdominal Pain. Negative for : Diarrhea Physical Exam - Physical Exam Appears: Well, Non-toxic Skin: Warm, Dry Oral Mucosa: Moist Chest: Symmetrical, No Tenderness Cardiovascular: Rhythm Regular, No Murmur Respiratory: No Rales, No Rhonchi, No Wheezing Gastrointestinal/Abdominal: Soft, No Tenderness Neurological/Psych: Oriented x3 ED Course And Treatment - Laboratory Results Result Diagrams: 01/04/17 19:39 01/04/17 19:39 O2 Sat by Pulse Oximetry: 98 (Room air) Pulse Ox Interpretation: Normal Progress Note: IV fluids administered. Reevaluation Time: 21:33 Reassessment Condition: Improved Medical Decision Making Medical Decision Making: Upon provider reevaluation patient is feeling better, is medically stable, and requires no further treatment in the ED at this time. Patient will be discharged home . Counseling was provided and all questions were answered regarding diagnosis and need for follow up with the referred clinic. There is agreement to discharge plan. Return if symptoms persist or worsen. Disposition Counseled Patient/Family Regarding: Studies Performed, Diagnosis, Need For Followup - Disposition Referrals: [facility] [Outside] Disposition: HOME/ ROUTINE Disposition Time: 19:30 Condition: FAIR Instructions: Abdominal Pain (ED), Gas and Bloating (ED) - Clinical Impression Clinical Impression: Abdominal pain - Scribe Statement The provider has reviewed the documentation as recorded by the Scribduane Perry All medical record entries made by the Lilliibduane were at my direction and personally dictated by me. I have reviewed the chart and agree that the record accurately reflects my personal performance of the history, physical exam, medical decision making, and the department course for this patient. I have also personally directed, reviewed, and agree with the discharge instructions and disposition.
[2017-01-04 19:42] LABS: EOS # 0.2 K/uL (0.0-0.7); LYMPH # 2.5 K/uL (1.0-4.3); MEAN PLATELET VOLUME 8.5 fL (7.2-11.7); MONO # 0.4 K/uL (0.0-0.8); NRBC % 0.1 % (0.0-2.0)
[2017-01-04 19:44] LABS: BASO % 0.4 % (0.0-2.0); EOS % 2.5 % (0.0-4.0); HEMATOCRIT 40.6 % (34.0-47.0); LYMPH % 39.1 % (20.0-40.0); MEAN CELL VOLUME 89.1 fL (81.0-99.0); MEAN CORPUSCULAR HEMOGLOBIN 29.2 pg (27.0-31.0); MEAN CORPUSCULAR HGB CONC 32.8 g/dL (33.0-37.0); MONO % 6.2 % (0.0-10.0); WHITE BLOOD COUNT 6.3 K/uL (4.8-10.8)
[2017-01-04 19:50] LABS: CHLORIDE 101 mmol/L (98-107); SODIUM 139 mmol/L (132-148)
[2017-01-04 19:52] LABS: ALB/GLOB RATIO 1.4 (1.0-2.1); ALKALINE PHOSPHATASE 43 U/L (38-126); AST/SGOT 18 U/L (14-36); BILIRUBIN,TOTAL 0.2 mg/dL (0.2-1.3); BLOOD UREA NITROGEN 10 mg/dL (7-17); CARBON DIOXIDE 25 mmol/L (22-30); GFR AFRICAN-AMERICAN > 60; TOTAL PROTEIN 8.6 g/dL (6.3-8.3)
[2017-01-04 19:53] LABS: ALT/SGPT 25 U/L (9-52); CALCIUM 9.1 mg/dl (8.6-10.4); GLUCOSE,RANDOM 72 mg/dL (65-105)
[2017-01-04] MEDS ORDERED: Sodium Chloride 0.9% 1,000 ML ONE (19:53)
[2017-01-04 20:18] LABS: RBC URINE 1 /hpf (0-3); URINE BILIRUBIN NEGATIVE (NEGATIVE); URINE BLOOD NEGATIVE (NEGATIVE); URINE COLOR Yellow (YELLOW); URINE GLUCOSE (UA) NORMAL (Normal); URINE KETONE NEGATIVE (NEGATIVE); URINE LEUKOCYTE ESTERASE NEG Leu/uL (Negative); URINE PROTEIN NEGATIVE (NEGATIVE); URINE UROBILINOGEN NORMAL mg/dL (0.2-1.0); WBC URINE < 1 /hpf (0-5)
[2017-01-04 21:54] VITALS: BP 117/78; PULSE 63; RESP 16; TEMP 98; O2SAT 100
== END 2017-01-04 21:54 | disposition home or self-care (01) ==
LOC: C.ER 17:38
DX: R10.9 Unspecified abdominal pain (principal)
CPT/HCPCS: 80053; 81001; 83690; 84703; 85025; 85610; 85730; 86850; 86900; 99284; J7040

== ENCOUNTER 2017-01-28 07:33 | Emergency (ER) | payer OTHER ==
[2017-01-28 07:33] VITALS: BMI 28.4
--- NOTE | 2017-01-28 07:43 | C.PDOC ---
History Of Present Illness 26F c/o painful lump of her left lower eyelid for the last 2 days with some swelling of the eyelid that started today. she has not tried anything for her symptoms. denies visual changes. she wears glasses but no contacts. Time Seen by Provider: 01/28/17 07:42 Chief Complaint (Nursing): Eye Problem Past Medical History Vital Signs: Last Vital Signs Temp 97.6 F 01/28/17 07:43 Pulse 63 01/28/17 07:43 Resp 20 01/28/17 07:43 BP 103/61 01/28/17 07:43 Pulse Ox 98 01/28/17 07:43 - Medical History PMH: Anemia, Seizures (last seizure 6 years ago) Family History: States: Unknown Family Hx - Social History Hx Tobacco Use: No Hx Alcohol Use: No Hx Substance Use: No - Immunization History Hx Tetanus Toxoid Vaccination: No Hx Influenza Vaccination: Yes Hx Pneumococcal Vaccination: No Review Of Systems Eyes: Positive for: Eyelid Inflammation. Negative for: Vision Change, Redness Cardiovascular: Negative for: Chest Pain Respiratory: Negative for: Cough, Shortness of Breath Gastrointestinal: Negative for: Nausea, Vomiting Neurological: Negative for: Headache, Dizziness Physical Exam - Physical Exam Appears: Well, Non-toxic, No Acute Distress Eye(s): bilateral: PERRL, EOMI, left: Other (small hordeolum left lower eyelid. mild edema low eyelid, no erythema.) Respiratory: No Accessory Muscle Use Neurological/Psych: Oriented x3, Other (no focal deficits) Medical Decision Making Medical Decision Making: no signs of cellulitis at this time. disc w pt plan for rx, f/u, and rtr. Disposition - Disposition Referrals: [facility] [Outside] Vj Aviles MD [Staff Provider] - Disposition: HOME/ ROUTINE Disposition Time: 08:00 Condition: GOOD Additional Instructions: Please follow up with your doctor. Follow up with the solar energy sales specialist as well. Return to the ER for any worsening symptoms or for any other concerns. Forms: General Discharge Instructions - Clinical Impression Clinical Impression: Hordeolum
[2017-01-28 07:48] VITALS: BP 103/61; PULSE 63; RESP 20; TEMP 97.6; O2SAT 98
== END 2017-01-28 08:10 | disposition home or self-care (01) ==
LOC: C.ER 07:33
DX: H00.015 Hordeolum externum left lower eyelid (principal)

== ENCOUNTER 2017-02-25 21:51 | Emergency (ER) | payer OTHER ==
[2017-02-25 21:51] VITALS: BMI 28.4
[2017-02-25 22:55] LABS: RBC URINE 5 /hpf (0-3); URINE BACTERIA OCC (<OCC); URINE BILIRUBIN NEGATIVE (NEGATIVE); URINE BLOOD 1+ (NEGATIVE); URINE COLOR Yellow (YELLOW); URINE GLUCOSE (UA) NORMAL (Normal); URINE KETONE NEGATIVE (NEGATIVE); URINE PROTEIN NEGATIVE (NEGATIVE); URINE UROBILINOGEN NORMAL mg/dL (0.2-1.0); WBC URINE 9 /hpf (0-5)
[2017-02-25 22:56] LABS: URINE LEUKOCYTE ESTERASE 1+ Leu/uL (Negative)
[2017-02-25] MEDS ORDERED: Sodium Chloride 0.9% 1,000 ML IV ONE (23:05)
[2017-02-25] MEDS ORDERED: Sodium Chloride 0.9% 1,000 ML ONE (23:21)
[2017-02-25 23:30] LABS: BASO # 0.1 K/uL (0.0-0.2); BASO % 0.8 % (0.0-2.0); EOS # 0.1 K/uL (0.0-0.7); EOS % 1.6 % (0.0-4.0); LYMPH # 3.2 K/uL (1.0-4.3); LYMPH % 43.2 % (20.0-40.0); MEAN CELL VOLUME 88.3 fL (81.0-99.0); MEAN CORPUSCULAR HEMOGLOBIN 29.1 pg (27.0-31.0); MEAN PLATELET VOLUME 8.8 fL (7.2-11.7); MONO # 0.5 K/uL (0.0-0.8); MONO % 6.7 % (0.0-10.0); NRBC % 0.2 % (0.0-2.0); RED CELL DISTRIBUTION WIDTH 13.8 % (11.5-14.5); WHITE BLOOD COUNT 7.3 K/uL (4.8-10.8)
[2017-02-25 23:36] LABS: CHLORIDE 101 mmol/L (98-107)
[2017-02-25 23:37] LABS: POTASSIUM 3.7 mmol/L (3.6-5.2); SODIUM 137 mmol/L (132-148)
[2017-02-25 23:39] LABS: ALB/GLOB RATIO 1.5 (1.0-2.1); AST/SGOT 14 U/L (14-36); BILIRUBIN,TOTAL 0.4 mg/dL (0.2-1.3); BLOOD UREA NITROGEN 11 mg/dL (7-17); CARBON DIOXIDE 22 mmol/L (22-30); GFR AFRICAN-AMERICAN > 60; TOTAL PROTEIN 7.8 g/dL (6.3-8.3)
[2017-02-25 23:40] LABS: ALKALINE PHOSPHATASE 39 U/L (38-126); ALT/SGPT 26 U/L (9-52); CALCIUM 9.1 mg/dl (8.6-10.4); GLUCOSE,RANDOM 83 mg/dL (65-105)
--- NOTE | 2017-02-26 00:47 | C.PDOC ---
Time Seen by Provider: 02/25/17 22:27 Chief Complaint (Nursing): Abdominal Pain History Per: Patient Onset/Duration Of Symptoms: Days (1), Waxing/Waning Current Symptoms Are (Timing): Still Present Severity: Moderate Location Of Pain/Discomfort: LLQ Radiation Of Pain To:: Back Quality Of Discomfort: Cramping Associated Symptoms: Nausea Exacerbating Factors: None Alleviating Factors: None Additional History Per: Prior Records Abnormal Vaginal Bleeding: No Last Menstral Period: 01/22/17 Past Medical History Reviewed: Historical Data, Nursing Documentation, Vital Signs Vital Signs: Last Vital Signs Temp 97.8 F 02/25/17 21:59 Pulse 69 02/25/17 21:59 Resp 16 02/25/17 21:59 BP 105/71 02/25/17 21:59 Pulse Ox 98 02/26/17 00:47 - Medical History PMH: Anemia, Seizures (last seizure 6 years ago) Other Surgeries: Heart surgery as a child Family History: States: Unknown Family Hx - Social History Hx Tobacco Use: No Hx Alcohol Use: No Hx Substance Use: No - Immunization History Hx Tetanus Toxoid Vaccination: No Hx Influenza Vaccination: Yes Hx Pneumococcal Vaccination: No Review Of Systems Except As Marked, All Systems Reviewed And Found Negative. Constitutional: Negative for: Fever, Weakness Cardiovascular: Negative for: Chest Pain Respiratory: Negative for: Shortness of Breath Gastrointestinal: Positive for: Abdominal Pain. Negative for: Diarrhea Genitourinary: Negative for: Dysuria, Vaginal Discharge, Vaginal Bleeding Musculoskeletal: Positive for: Back Pain. Negative for: Neck Pain Skin: Negative for: Rash Neurological: Negative for: Weakness, Numbness, Seizures, Altered Mental Status Physical Exam - Physical Exam Appears: Non-toxic, No Acute Distress Skin: Normal Color, Warm, Dry, No Rash Head: Atraumatic, Normacephalic Eye(s): bilateral: Normal Inspection, PERRL, EOMI Neck: Normal ROM, Supple Cardiovascular: Rhythm Regular Respiratory: Normal Breath Sounds, No Accessory Muscle Use Gastrointestinal/Abdominal: Soft, Tenderness (LLQ) Back: No CVA Tenderness Extremity: Normal ROM Neurological/Psych: Oriented x3, Normal Motor, Normal Sensation ED Course And Treatment - Laboratory Results Result Diagrams: 02/25/17 23:25 02/25/17 23:25 Lab Interpretation: No Acute Changes Interpretation Of Abnormal: Beta hcg is only 600 Urine POC: Positive O2 Sat by Pulse Oximetry: 98 Pulse Ox Interpretation: Normal - CT Scan/US Pelvic US Other Rad Studies (CT/US): Read By Radiologist, Radiology Report Reviewed CT/US Interpretation: IMPRESSION: 1. No intrauterine gestation. DDX: Early IUP , missed , ectopic. . 2. Probable complex RIGHT ovarian cyst. 3. LEFT ovarian cyst. 4. Incidental/non-acute findings are described above. Reassessment Condition: Improved Disposition Counseled Patient/Family Regarding: Studies Performed, Diagnosis, Need For Followup - Disposition Disposition: HOME/ ROUTINE Disposition Time: 01:06 Condition: STABLE Additional Instructions: Follow up with your Digital Marketing Executive doctor. Return to the ER in 2 days for repeat hormone level in order to rule out a life-threatening ectopic . Return to the ER immediately if you develop dizziness, vaginal bleeding, worsening of symptoms or if you have any other concerns. Instructions: Abdominal Pain in (ED) - Clinical Impression Clinical Impression: Abdominal pain during , Ovarian cyst
--- NOTE | 2017-02-26 00:55 | US ---
EXAM: US First Trimester, Transabdominal CLINICAL HISTORY: 26 years old, female; Pain; Pelvic pain; ; Patient HX: Beta 638.25; Additional info: Llq pain TECHNIQUE: Real-time transabdominal obstetrical ultrasound of the maternal pelvis and a first trimester with image documentation. COMPARISON: No relevant prior studies available. FINDINGS: Gestation: No intrauterine gestational sac. Uterus/cervix: Endometrium: 1.5 cm in thickness. Small fluid within endometrial canal. Closed cervix. Ovaries: RIGHT ovary: 1.7 x 2.5 x 2.0 cm hypoechoic lesion with internal echoes. LEFT ovary: 1.7 x 1.6 x 2.3 cm anechoic lesion. No adnexal masses. Free fluid: No significant free fluid. IMPRESSION: 1. No intrauterine gestation. DDX: Early IUP, missed , ectopic . 2. Probable complex RIGHT ovarian cyst. 3. LEFT ovarian cyst. 4. Incidental/non-acute findings are described above. EXAM: US , Transvaginal CLINICAL HISTORY: 26 years old, female; Pain; Pelvic pain; ; Patient HX: Beta 638.25; Additional info: Llq pain TECHNIQUE: Real-time transvaginal obstetrical ultrasound of the maternal pelvis and a first trimester with image documentation. Transvaginal imaging was used for better evaluation of the fetus and adnexa. COMPARISON: No relevant prior studies available. FINDINGS: Gestation: No intrauterine gestational sac. Uterus/cervix: Endometrium: 1.5 cm in thickness. Small fluid within endometrial canal. Closed cervix. Ovaries: RIGHT ovary: 1.7 x 2.5 x 2.0 cm hypoechoic lesion with internal echoes. LEFT ovary: 1.7 x 1.6 x 2.3 cm anechoic lesion. No adnexal masses. Free fluid: No significant free fluid.
[2017-02-26 01:28] VITALS: BP 95/60; PULSE 75; RESP 18; TEMP 98; O2SAT 100
== END 2017-02-26 01:36 | disposition home or self-care (01) ==
LOC: C.ER 21:51
DX: O34.81 Maternal care for other abnormalities of pelvic organs, first trimester (principal); N83.202 Unspecified ovarian cyst, left side; Z3A.00 Weeks of gestation of pregnancy not specified
CPT/HCPCS: 76830; 76856; 80053; 81001; 84702; 84703; 85025; 86850; 86900; 99284; J7040

== ENCOUNTER 2017-03-03 18:07 | Emergency (ER) | payer OTHER ==
[2017-03-03 18:08] VITALS: BMI 28.4
--- NOTE | 2017-03-03 19:51 | US ---
EXAM: US , Transvaginal CLINICAL HISTORY: 26 years old, female; Pain; complicated by abdominal or pelvic pain; Lower; First trimester; Gestational age or lmp: 01/26/2017, 5 weeks 1 day by dates; ; Additional info: Early with abdominal pain TECHNIQUE: Real-time transvaginal obstetrical ultrasound of the maternal pelvis and a first trimester with image documentation. Transvaginal imaging was used for better evaluation of the fetus and adnexa. EXAM DATE/TIME: 03/03/2017 6:49 PM COMPARISON: CT - ABD PELVIS IV CONTRAST ONLY 08/29/2016 1:44:56 AM FINDINGS: Gestation: There is a single intrauterine gestation. Gestational sac has mean diameter 7.4 mm. There is a 2 mm yolk sac. pole is not yet visible. There is a 12 x 7 x 12 mm subchorionic hemorrhage. Uterus/cervix: Uterus measures approximately 10 x 5.4 x 7.5 cm. Cervix is closed. There is a nabothian cyst in the cervix. Ovaries: Right ovary measures 5.5 x 2.71 x 4.09 cm. Left ovary measures 4.39 x 2.46 x 3.85 cm. There are small follicles. There is intraovarian blood flow. Free fluid: No free fluid IMPRESSION: Single intrauterine gestation too early to date; small subchorionic bleed Followup suggested to document development of a pole
--- NOTE | 2017-03-03 19:54 | C.PDOC ---
History Of Present Illness 26 year old patient presents to the ED complaining of sharp lower abdominal pain that began today. Patient notes she is 4 weeks ; 8, para 3 , miscarriages 4. 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 She also had 2 ultrasounds done showing no IUP. Patient's serum beta-hCG are increasing. She was advised to follow up here 3 days ago, but she didn't. She returns today because of the recurring discomfort. Patient denies fever, nausea, vomiting, diarrhea, back pain, urinary symptoms, vaginal bleeding or discharge. Time Seen by Provider: 03/03/17 18:38 Chief Complaint (Nursing): Abdominal Pain History Per: Patient History/Exam Limitations: no limitations Onset/Duration Of Symptoms: Worse Since (today) Context: Other Severity: Mild Pain Scale Rating Of: 3 Location Of Pain/Discomfort: Suprapubic Quality Of Discomfort: Sharp, "Pain" Exacerbating Factors: None Alleviating Factors: None Last Bowel Movement: Today Recent travel outside of the [place]: No Abnormal Vaginal Bleeding: No : 8 Para: 3 Miscarriage: 4 Past Medical History Reviewed: Historical Data, Nursing Documentation, Vital Signs Vital Signs: Last Vital Signs Temp 98.6 F 03/03/17 18:14 Pulse 78 03/03/17 18:14 Resp 16 03/03/17 18:14 BP 105/71 03/03/17 18:14 Pulse Ox 98 03/03/17 20:34 - Medical History PMH: Anemia, Seizures (last seizure 6 years ago) Family History: States: Unknown Family Hx - Social History Hx Tobacco Use: No Hx Alcohol Use: No Hx Substance Use: No - Immunization History Hx Tetanus Toxoid Vaccination: No Hx Influenza Vaccination: Yes Hx Pneumococcal Vaccination: No Review Of Systems Except As Marked, All Systems Reviewed And Found Negative. Constitutional: Negative for: Fever Gastrointestinal: Positive for: Abdominal Pain (lower). Negative for: Nausea, Vomiting, Diarrhea Genitourinary: Negative for: Dysuria, Hematuria, Vaginal Discharge, Vaginal Bleeding Musculoskeletal: Negative for: Back Pain Physical Exam - Physical Exam Appears: Non-toxic, No Acute Distress Skin: Warm, Dry Head: Atraumatic, Normacephalic Neck: Normal ROM, Supple Chest: Symmetrical Cardiovascular: Rhythm Regular Respiratory: Normal Breath Sounds, No Rales, No Rhonchi, No Wheezing Gastrointestinal/Abdominal: Soft, Tenderness (mild suprapubic), No Guarding, No Rebound Back: Normal Inspection, No CVA Tenderness Extremity: Normal ROM Neurological/Psych: Oriented x3, Normal Speech, Normal Cognition Gait: Steady ED Course And Treatment - Laboratory Results Result Diagrams: 03/03/17 20:13 Lab Interpretation: Abnormal Interpretation Of Abnormal: BHCG 4331, Urine sp gr 1.031, WBC 54 with + leukocyte esterase and bacteria. O2 Sat by Pulse Oximetry: 98 Pulse Ox Interpretation: Normal - CT Scan/US Transvaginal US Other Rad Studies (CT/US): Read By Radiologist, Radiology Report Reviewed CT/US Interpretation: EXAM: US , Transvaginal. CLINICAL HISTORY: 26 years old, female; Pain; complicated by abdominal or pelvic pain; Lower; First. trimester; Gestational age or lmp: 01/26/2017, 5 weeks 1 day by dates; ; Additional info: Early with abdominal pain. TECHNIQUE: Real-time transvaginal obstetrical ultrasound of the maternal pelvis and a first trimester . with image documentation. Transvaginal imaging was used for better evaluation of the fetus and. adnexa. EXAM DATE/ TIME: 03/03/2017 6:49 PM. COMPARISON: CT - ABD PELVIS IV CONTRAST ONLY 2015 1:44:56 AM. FINDINGS: Gestation: There is a single intrauterine gestation. Gestational sac has mean diameter 7.4 mm. There is a 2 mm yolk sac. pole is not yet visible. There is a 12 x 7 x 12 mm subchorionic. hemorrhage. Uterus/cervix: Uterus measures approximately 10 x 5.4 x 7.5 cm. Cervix is closed. There is a. nabothian cyst in the cervix. Ovaries: Right ovary measures 5.5 x 2.71 x 4.09 cm. Left ovary measures 4.39 x 2.46 x 3.85 cm. There are small follicles. There is intraovarian blood flow. Free fluid: No free fluid. IMPRESSION: Single intrauterine gestation too early to date; small subchorionic bleed. Followup suggested to document development of a pole Reevaluation Time: 21:07 Reassessment Condition: Improved Medical Decision Making Medical Decision Making: Plan: * Labs * OB transvaginal US Disposition Counseled Patient/Family Regarding: Studies Performed, Diagnosis, Need For Followup, Rx Given - Disposition Disposition: HOME/ ROUTINE Disposition Time: 21:14 Condition: IMPROVED Additional Instructions: Follow up with your new wire twister on March 22 as scheduled. Prescriptions: Nitrofurantoin Macrocrystals [Macrobid] 1 cap PO BID #14 cap Instructions: Urinary Tract Infection in (ED) - Clinical Impression Clinical Impression: UTI (urinary tract infection) during - Scribe Statement The provider has reviewed the documentation as recorded by the Scribe Haritha Fiore Provider Attestation: All medical record entries made by the Scribe were at my direction and personally dictated by me. I have reviewed the chart and agree that the record accurately reflects my personal performance of the history, physical exam, medical decision making, and the department course for this patient. I have also personally directed, reviewed, and agree with the discharge instructions and disposition.
[2017-03-03 19:56] LABS: RBC URINE 3 /hpf (0-3); URINE BACTERIA MOD (<OCC); URINE BILIRUBIN NEGATIVE (NEGATIVE); URINE BLOOD NEGATIVE (NEGATIVE); URINE COLOR Yellow (YELLOW); URINE GLUCOSE (UA) NORMAL (Normal); URINE KETONE NEGATIVE (NEGATIVE); URINE PROTEIN NEGATIVE (NEGATIVE); URINE UROBILINOGEN NORMAL mg/dL (0.2-1.0); WBC URINE 54 /hpf (0-5)
[2017-03-03 19:57] LABS: URINE LEUKOCYTE ESTERASE 3+ Leu/uL (Negative)
[2017-03-03 20:17] LABS: BASO % 0.7 % (0.0-2.0); EOS # 0.1 K/uL (0.0-0.7); EOS % 2.1 % (0.0-4.0); HEMATOCRIT 33.7 % (34.0-47.0); LYMPH # 1.7 K/uL (1.0-4.3); LYMPH % 34.6 % (20.0-40.0); MEAN CORPUSCULAR HEMOGLOBIN 29.5 pg (27.0-31.0); MEAN CORPUSCULAR HGB CONC 33.9 g/dL (33.0-37.0); MEAN PLATELET VOLUME 7.8 fL (7.2-11.7); MONO # 0.5 K/uL (0.0-0.8); MONO % 10.3 % (0.0-10.0); NRBC % 0.1 % (0.0-2.0); RED CELL DISTRIBUTION WIDTH 13.8 % (11.5-14.5); WHITE BLOOD COUNT 4.9 K/uL (4.8-10.8)
[2017-03-03] MEDS ORDERED: Sodium Chloride 0.9% 1,000 ML IV ONE (20:35)
[2017-03-03 21:41] VITALS: TEMP 98
[2017-03-03 21:42] VITALS: BP 118/72; PULSE 88; RESP 20; O2SAT 99
== END 2017-03-03 21:41 | disposition home or self-care (01) ==
LOC: C.ER 18:07
DX: O23.41 Unspecified infection of urinary tract in pregnancy, first trimester (principal); Z3A.01 Less than 8 weeks gestation of pregnancy
CPT/HCPCS: 76817; 81001; 84702; 85025; 87086; 99285; J7040

== ENCOUNTER 2017-03-24 22:39 | Emergency (ER) | payer OTHER ==
[2017-03-24 22:39] VITALS: BMI 28.4
[2017-03-24 22:49] VITALS: PULSE 73; RESP 20
--- NOTE | 2017-03-24 23:23 | C.PDOC ---
History Of Present Illness 26 year old female who is 8 week presents to the ER with a complaint vaginal bleeding. 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 Denies abdominal pain, hematuria, or dysuria. Time Seen by Provider: 03/24/17 23:10 Chief Complaint (Nursing): Female Genitourinary History Per: Patient History/Exam Limitations: no limitations Onset/Duration Of Symptoms: Hrs Current Symptoms Are (Timing): Still Present Associated Symptoms: denies: Fever, Chills, Urinary Symptoms Alleviating Factors: None Recent travel outside of the [place]: No Abnormal Vaginal Bleeding: Yes Past Medical History Reviewed: Historical Data, Nursing Documentation, Vital Signs Vital Signs: Last Vital Signs Temp 98.4 F 03/24/17 22:45 Pulse 73 03/24/17 22:45 Resp 20 03/24/17 22:45 BP 100/63 03/24/17 22:45 Pulse Ox 99 03/24/17 23:33 - Medical History PMH: Anemia, Seizures (last seizure 6 years ago) Surgical History: No Surg Hx Family History: States: No Known Family Hx - Social History Hx Tobacco Use: No Hx Alcohol Use: No Hx Substance Use: No - Immunization History Hx Tetanus Toxoid Vaccination: No Hx Influenza Vaccination: Yes Hx Pneumococcal Vaccination: No Review Of Systems Constitutional: Negative for: Fever, Chills Gastrointestinal: Negative for: Abdominal Pain Genitourinary: Positive for: Vaginal Bleeding. Negative for: Dysuria, Hematuria Physical Exam - Physical Exam Appears: Non-toxic Skin: Warm, Dry Oral Mucosa: Moist Chest: Symmetrical, No Tenderness Cardiovascular: Rhythm Regular, No Murmur Respiratory: No Rales, No Rhonchi, No Wheezing Gastrointestinal/Abdominal: Soft, No Tenderness Pelvic: Vaginal Discharge (Whitish), Other (Cervix Closed) Neurological/Psych: Oriented x3, Normal Speech, Normal Cognition ED Course And Treatment - Laboratory Results Result Diagrams: 03/24/17 23:24 O2 Sat by Pulse Oximetry: 99 (Room air) Pulse Ox Interpretation: Normal Progress Note: Blood work, urinalysis, and pelvic US ordered. Disposition - Disposition Disposition Time: 00:55 Condition: STABLE - Clinical Impression Clinical Impression: Threatened - Scribe Statement The provider has reviewed the documentation as recorded by the Scribe Sebastián Perry All medical record entries made by the Scribe were at my direction and personally dictated by me. I have reviewed the chart and agree that the record accurately reflects my personal performance of the history, physical exam, medical decision making, and the department course for this patient. I have also personally directed, reviewed, and agree with the discharge instructions and disposition. Physician Patient Turnover Patient Signed Over To: Jeff Katz Handoff Comments: pending ultrasound
[2017-03-24 23:28] LABS: BASO # 0.1 K/uL (0.0-0.2); BASO % 0.8 % (0.0-2.0); EOS # 0.2 K/uL (0.0-0.7); EOS % 2.1 % (0.0-4.0); HEMOGLOBIN 11.4 g/dL (11.0-16.0); LYMPH # 2.8 K/uL (1.0-4.3); LYMPH % 36.6 % (20.0-40.0); MEAN CELL VOLUME 88.2 fL (81.0-99.0); MEAN CORPUSCULAR HEMOGLOBIN 29.4 pg (27.0-31.0); MEAN CORPUSCULAR HGB CONC 33.3 g/dL (33.0-37.0); MEAN PLATELET VOLUME 8.8 fL (7.2-11.7); MONO # 0.5 K/uL (0.0-0.8); NEUT % 53.5 % (50.0-75.0); RBC 3.88 Mil/uL (3.80-5.20); RED CELL DISTRIBUTION WIDTH 13.9 % (11.5-14.5); WHITE BLOOD COUNT 7.5 K/uL (4.8-10.8)
[2017-03-24 23:49] LABS: URINE BILIRUBIN NEGATIVE (NEGATIVE); URINE BLOOD 2+ (NEGATIVE); URINE CLARITY Hazy (Clear); URINE COLOR Yellow (YELLOW); URINE GLUCOSE (UA) NORMAL (Normal); URINE LEUKOCYTE ESTERASE TRACE Leu/uL (Negative); URINE NITRATE NEGATIVE (NEGATIVE); URINE PROTEIN NEGATIVE (NEGATIVE); URINE UROBILINOGEN NORMAL mg/dL (0.2-1.0)
[2017-03-24 23:51] LABS: SQUAMOUS EPITHIAL 12 /hpf (0-5); URINE BACTERIA RARE (<OCC)
[2017-03-25 00:56] VITALS: BP 152/73; TEMP 98.3; O2SAT 99
--- NOTE | 2017-03-25 01:52 | US ---
EXAM: US First Trimester, Transabdominal CLINICAL HISTORY: 26 years old, female; Signs and symptoms; Lmp or gestational age (in weeks): 01-22-2017; Other: Bleeding; ; Additional info: with vaginal bleeding TECHNIQUE: Real-time transabdominal obstetrical ultrasound of the maternal pelvis and a first trimester with image documentation. COMPARISON: 03/03/2017 FINDINGS: Gestation: Single live intrauterine gestation. heart rate of 172 beats per minute. [place]-rump length of 1.90 cm, correlating with gestational age of 8 weeks 3 days. Uterus/cervix: 1.4 x 1.6 x 1.2 cm, 1.1 x 1.0 x 1.8 cm collections along gestational sac. No cervical dilatation or effacement. Ovaries: RIGHT ovary: Normal. LEFT ovary: 1.7 x 1.8 x 2.1 cm anechoic lesion. No adnexal masses. Free fluid: No significant free fluid. IMPRESSION: 1. Single live intrauterine gestation. 2. Subchorionic hemorrhage. 3. LEFT ovarian cyst. 4. Incidental/non-acute findings are described above.
== END 2017-03-25 02:05 | disposition home or self-care (01) ==
LOC: C.ER 22:39
DX: O20.0 Threatened abortion (principal); Z3A.08 8 weeks gestation of pregnancy

== ENCOUNTER 2017-04-03 20:41 | Emergency (ER) | payer OTHER ==
[2017-04-03 20:43] VITALS: BMI 28.4
[2017-04-03] MEDS ORDERED: Sodium Chloride 0.9% 1,000 ML IV ONE (21:40)
[2017-04-03] MEDS ORDERED: Sodium Chloride 0.9% 1,000 ML ONE (21:57)
[2017-04-03 22:08] LABS: BASO % 0.7 % (0.0-2.0); EOS # 0.1 K/uL (0.0-0.7); EOS % 1.7 % (0.0-4.0); HEMOGLOBIN 11.4 g/dL (11.0-16.0); LYMPH # 2.5 K/uL (1.0-4.3); LYMPH % 37.2 % (20.0-40.0); MEAN CELL VOLUME 87.7 fL (81.0-99.0); MEAN CORPUSCULAR HEMOGLOBIN 29.5 pg (27.0-31.0); MEAN CORPUSCULAR HGB CONC 33.6 g/dL (33.0-37.0); MEAN PLATELET VOLUME 8.9 fL (7.2-11.7); MONO # 0.5 K/uL (0.0-0.8); MONO % 6.9 % (0.0-10.0); NEUT # 3.6 K/uL (1.8-7.0); NEUT % 53.5 % (50.0-75.0); RBC 3.86 Mil/uL (3.80-5.20); RED CELL DISTRIBUTION WIDTH 13.9 % (11.5-14.5); WHITE BLOOD COUNT 6.7 K/uL (4.8-10.8)
[2017-04-03 22:17] LABS: SQUAMOUS EPITHIAL 10 /hpf (0-5); URINE BACTERIA RARE (<OCC); URINE BILIRUBIN NEGATIVE (NEGATIVE); URINE BLOOD 1+ (NEGATIVE); URINE CLARITY Hazy (Clear); URINE COLOR Yellow (YELLOW); URINE GLUCOSE (UA) NORMAL (Normal); URINE LEUKOCYTE ESTERASE TRACE Leu/uL (Negative); URINE NITRATE NEGATIVE (NEGATIVE); URINE PROTEIN NEGATIVE (NEGATIVE); URINE UROBILINOGEN NORMAL mg/dL (0.2-1.0)
[2017-04-03 22:24] LABS: ALB/GLOB RATIO 1.4 (1.0-2.1); AST/SGOT 15 U/L (14-36); GFR AFRICAN-AMERICAN > 60; GFR NON-AFRICAN AMERICAN > 60
[2017-04-03 22:25] LABS: ALT/SGPT 30 U/L (9-52); BLOOD UREA NITROGEN 10 mg/dL (7-17)
--- NOTE | 2017-04-03 22:56 | C.PDOC ---
Time Seen by Provider: 04/03/17 21:27 Chief Complaint (Nursing): Female Genitourinary History Per: Patient Onset/Duration Of Symptoms: Hrs (since this morning) Current Symptoms Are (Timing): Still Present Severity: Mild Quality Of Discomfort: Cramping (gone) Alleviating Factors: None Additional History Per: Prior Records Abnormal Vaginal Bleeding: Yes Last Menstral Period: 10 weeks Past Medical History Reviewed: Historical Data, Nursing Documentation, Vital Signs Vital Signs: Last Vital Signs Temp Pulse 74 04/03/17 20:51 Resp 16 04/03/17 20:51 BP 99/67 L 04/03/17 20:51 Pulse Ox 99 04/03/17 20:51 - Medical History PMH: Anemia, Seizures (last seizure 6 years ago) Other Surgeries: Heart surgery as a child Family History: States: Unknown Family Hx - Social History Hx Tobacco Use: No Hx Alcohol Use: No Hx Substance Use: No - Immunization History Hx Tetanus Toxoid Vaccination: No Hx Influenza Vaccination: Yes Hx Pneumococcal Vaccination: No Review Of Systems Except As Marked, All Systems Reviewed And Found Negative. Constitutional: Negative for: Fever, Weakness Cardiovascular: Negative for: Chest Pain Respiratory: Negative for: Shortness of Breath Gastrointestinal: Negative for: Vomiting, Abdominal Pain Genitourinary: Positive for: Vaginal Bleeding. Negative for: Dysuria Musculoskeletal: Negative for: Neck Pain, Back Pain Skin: Negative for: Rash Neurological: Negative for: Weakness, Numbness, Seizures, Altered Mental Status Physical Exam - Physical Exam Appears: Non-toxic, No Acute Distress Skin: Normal Color, Warm, Dry, No Rash Head: Atraumatic, Normacephalic Eye(s): bilateral: Normal Inspection, PERRL, EOMI Neck: Normal ROM, Supple Cardiovascular: Rhythm Regular Respiratory: Normal Breath Sounds, No Accessory Muscle Use Gastrointestinal/Abdominal: Soft, No Tenderness Back: No CVA Tenderness Extremity: Normal ROM Neurological/Psych: Oriented x3, Normal Motor, Normal Sensation ED Course And Treatment - Laboratory Results Result Diagrams: 04/03/17 22:03 04/03/17 22:03 Interpretation Of Abnormal: Beta hcg is increasing. Blood type is A negative. O2 Sat by Pulse Oximetry: 99 Pulse Ox Interpretation: Normal Progress Note: Pt received Rhogam because she is Rh negative. Reassessment Condition: Improved Disposition Counseled Patient/Family Regarding: Studies Performed, Diagnosis, Need For Followup - Disposition Disposition: HOME/ ROUTINE Disposition Time: 22:56 Condition: STABLE Additional Instructions: Follow up with your Business Law Professor doctor for further evaluation and treatment. Return to the ER if you develop heavy bleeding, dizziness, worsening of symptoms or if you have other concerns. Instructions: Threatened Miscarriage (ED) - Clinical Impression Clinical Impression: Threatened in first trimester
[2017-04-03 23:27] VITALS: BP 110/74; PULSE 69; RESP 18; TEMP 98.1; O2SAT 100
== END 2017-04-03 23:25 | disposition home or self-care (01) ==
LOC: C.ER 20:41
DX: O20.0 Threatened abortion (principal); Z3A.10 10 weeks gestation of pregnancy
CPT/HCPCS: 80053; 81001; 84702; 85025; 86850; 86900; 96360; 99284; J2792; J7040

== ENCOUNTER 2017-05-11 19:59 | Emergency (ER) | payer OTHER ==
[2017-05-11 20:00] VITALS: BMI 28.4
[2017-05-11 20:13] VITALS: BP 112/71; PULSE 72; RESP 18; TEMP 98.5; O2SAT 99
[2017-05-11 21:13] LABS: RBC URINE 3 /hpf (0-3); URINE BACTERIA RARE (<OCC); URINE BILIRUBIN NEGATIVE (NEGATIVE); URINE BLOOD 1+ (NEGATIVE); URINE COLOR Yellow (YELLOW); URINE GLUCOSE (UA) NORMAL (Normal); URINE KETONE NEGATIVE (NEGATIVE); URINE LEUKOCYTE ESTERASE TRACE Leu/uL (Negative); URINE PROTEIN 1+ mg/dL (NEGATIVE); URINE UROBILINOGEN NORMAL mg/dL (0.2-1.0); WBC URINE 2 /hpf (0-5)
--- NOTE | 2017-05-11 21:19 | C.PDOC ---
History Of Present Illness 26 y/o female who is 14 weeks and , c/o scant vaginal spotting that began this morning. Patient has normal prior intrauterine US. Denies abdominal pain, chest pain, SOB, palpitation, diaphoresis, fever, chills, or any other complaints. Time Seen by Provider: 05/11/17 20:34 Chief Complaint (Nursing): Female Genitourinary History Per: Patient History/Exam Limitations: no limitations Onset/Duration Of Symptoms: Hrs Current Symptoms Are (Timing): Still Present Severity: Mild Associated Symptoms: denies: Fever, Chills Recent travel outside of the [place]: No Additional History Per: Patient Abnormal Vaginal Bleeding: Yes : 4 Para: 3 Past Medical History Reviewed: Historical Data, Nursing Documentation, Vital Signs Vital Signs: Last Vital Signs Temp 98.5 F 05/11/17 20:08 Pulse 72 05/11/17 20:08 Resp 18 05/11/17 20:08 BP 112/71 05/11/17 20:08 Pulse Ox 99 05/11/17 21:51 - Medical History PMH: Anemia, Seizures (last seizure 6 years ago) Denies: Chronic Kidney Disease Family History: States: Unknown Family Hx - Social History Hx Tobacco Use: No Hx Alcohol Use: No Hx Substance Use: No - Immunization History Hx Tetanus Toxoid Vaccination: No Hx Influenza Vaccination: Yes Hx Pneumococcal Vaccination: No Review Of Systems Except As Marked, All Systems Reviewed And Found Negative. Constitutional: Negative for: Fever, Chills, Sweats Cardiovascular: Negative for: Chest Pain, Palpitations Gastrointestinal: Negative for: Abdominal Pain Genitourinary: Positive for: Vaginal Bleeding (Scant vaginal spotting) Physical Exam - Physical Exam Appears: Non-toxic, No Acute Distress, Other (14 weeks ) Skin: Warm, Dry Head: Atraumatic, Normacephalic Neck: Supple Cardiovascular: Rhythm Regular Respiratory: Normal Breath Sounds, No Rales, No Rhonchi, No Wheezing Gastrointestinal/Abdominal: Soft, No Tenderness Back: Normal Inspection, No CVA Tenderness Neurological/Psych: Oriented x3, Normal Speech, Normal Cognition ED Course And Treatment O2 Sat by Pulse Oximetry: 99 (RA) Pulse Ox Interpretation: Normal Medical Decision Making Medical Decision Making: Impression: 26 y/o female who is 14 weeks , c/o scant vaginal spotting that began this morning. Plans: * UA * Urine culture 14 wks preg, prior US's wnl with male fetus pt defers w/u no- does not want to wait for US, prefers to f/u @ OBGYN in AM UA neg for infection. Disposition Doctor Will See Patient In The: Office Counseled Patient/Family Regarding: Studies Performed, Diagnosis - Disposition Referrals: [facility] [Outside] [facility] [Outside] [facility] [Outside] Disposition: HOME/ ROUTINE Disposition Time: 21:18 Condition: GOOD Additional Instructions: urinalysis normal today Follow-up tomorrow with your OBGYN for Ultrasound as desired. Instructions: Threatened Miscarriage (ED) Forms: [employer] ([place]ian) - Clinical Impression Clinical Impression: Spotting affecting - Scribe Statement The provider has reviewed the documentation as recorded by the Scribe Louie osborne All medical record entries made by the Scribe were at my direction and personally dictated by me. I have reviewed the chart and agree that the record accurately reflects my personal performance of the history, physical exam, medical decision making, and the department course for this patient. I have also personally directed, reviewed, and agree with the discharge instructions and disposition.
== END 2017-05-11 21:30 | disposition home or self-care (01) ==
LOC: SUPCPDRO 19:59 → C.ER 19:59
DX: O26.852 Spotting complicating pregnancy, second trimester (principal); Z3A.14 14 weeks gestation of pregnancy

== ENCOUNTER 2017-06-09 08:39 | Emergency (ER) | payer OTHER ==
[2017-06-09 08:39] VITALS: BMI 28.4
[2017-06-09 09:03] VITALS: RESP 18; TEMP 97.9
--- NOTE | 2017-06-09 09:23 | C.PDOC ---
History Of Present Illness 26 y/o female currently 19 weeks presents to ED with complaints of left buttock pain and leg pain. Patient states she fell off bed last night and developed painand swelling to area. 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 Patient denies loc, head injury, dizziness, vision changes or any other complaints at this time. Time Seen by Provider: 06/09/17 09:02 Chief Complaint (Nursing): Lower Extremity Problem/Injury History Per: Patient History/Exam Limitations: no limitations Onset/Duration Of Symptoms: Days Current Symptoms Are (Timing): Still Present - Hip Description Of Injury: Fell - Knee Description Of Injury: Fell Past Medical History Reviewed: Historical Data, Nursing Documentation, Vital Signs Vital Signs: Last Vital Signs Temp 97.9 F 06/09/17 08:57 Pulse 82 06/09/17 09:47 Resp 18 06/09/17 09:47 BP 92/57 L 06/09/17 09:47 Pulse Ox 99 06/09/17 09:47 - Medical History PMH: Anemia, Seizures (last seizure 6 years ago) Family History: States: Unknown Family Hx - Social History Hx Tobacco Use: No Hx Alcohol Use: No Hx Substance Use: No - Immunization History Hx Tetanus Toxoid Vaccination: No Hx Influenza Vaccination: Yes Hx Pneumococcal Vaccination: No Review Of Systems Except As Marked, All Systems Reviewed And Found Negative. Constitutional: Negative for: Fever, Chills Eyes: Negative for: Vision Change Respiratory: Negative for: Shortness of Breath Gastrointestinal: Negative for: Nausea, Vomiting Musculoskeletal: Positive for: Leg Pain. Negative for: Neck Pain Skin: Negative for: Rash Neurological: Negative for: Weakness, Numbness Physical Exam - Physical Exam Appears: Non-toxic, No Acute Distress Skin: Warm, Dry, No Rash, Ecchymosis (to right upper leg) Head: Atraumatic, Normacephalic Eye(s): bilateral: Normal Inspection Oral Mucosa: Moist Neck: Normal ROM, Supple Chest: Symmetrical Cardiovascular: Rhythm Regular, No Murmur Respiratory: Normal Breath Sounds, No Rales, No Rhonchi, No Wheezing Gastrointestinal/Abdominal: Soft, No Tenderness, No Guarding, No Rebound Extremity: No Tenderness, Capillary Refill (<2 seconds), No Deformity, Other ( varicose veins bilateraol to lower extremities) Neurological/Psych: Oriented x3 ED Course And Treatment O2 Sat by Pulse Oximetry: 100 (RA) Progress Note: Patient took tylenol at home today. treated with icepack and tito bandage. Patient has appointment today with her OB Reassessment Condition: Improved Medical Decision Making Medical Decision Making: Plan: * Tito area, given ice pack, bandage and discharged home * * * Patient denies any head injury or abdominal pain, Disposition - Disposition Referrals: [facility] [Outside] [facility] [Outside] Disposition: HOME/ ROUTINE Disposition Time: 09:45 Condition: STABLE Additional Instructions: Ice to affected area Keep legs elevated Instructions: Varicose Veins (ED), Hematoma (ED) Forms: [employer] (Vietnamese) - POA Present On Arrival: None - Clinical Impression Clinical Impression: , Leg pain, Hematoma - PA / GROCERY CLERK / Resident Statement MD/DO has reviewed & agrees with the documentation as recorded. - Scribe Statement The provider has reviewed the documentation as recorded by the Scribduane Constantino All medical record entries made by the Lilliibduane were at my direction and personally dictated by me. I have reviewed the chart and agree that the record accurately reflects my personal performance of the history, physical exam, medical decision making, and the department course for this patient. I have also personally directed, reviewed, and agree with the discharge instructions and disposition.
[2017-06-09 09:48] VITALS: BP 92/57; PULSE 82
[2017-06-09 15:57] VITALS: O2SAT 100
== END 2017-06-09 09:49 | disposition home or self-care (01) ==
LOC: C.ER 08:39
DX: S70.11XA Contusion of right thigh, initial encounter (principal); W06.XXXA Fall from bed, initial encounter; Y93.89 Activity, other specified; Y92.003 Bedroom of unspecified non-institutional (private) residence as the place of occurrence of the external cause; O26.892 Other specified pregnancy related conditions, second trimester; Z3A.19 19 weeks gestation of pregnancy

== ENCOUNTER 2017-06-16 11:00 | Emergency (ER) | payer OTHER ==
[2017-06-16 11:15] VITALS: BMI 29.0
--- NOTE | 2017-06-16 11:18 | OBHP ---
Datetime: 06/16/2017 11:16 IP Adm Impression: , intrauterine Admit Comment, IP Provider: at 20+weeks came with c/o pain in the abdomen started in the mornin g abnd c/o pelvic pressure, no vb, lof,+fm. obhx 3 x pmh de med pnv all nkda psh de soch de ve closed a/p at 20+weeks r/o uti ua cont michelle cont close observa Pelvic Type - PN: Adequate Extremities - PN: Normal Abdomen - PN: Normal Back - PN: Normal Breast - PN: Normal Lungs - PN: Normal Heart - PN: Normal Thyroid - PN: Normal Neurologic - PN: Normal HEENT - PN: Normal General - PN: Normal Contraction Comments Provider: none EGA AdmitDate IP: 20.5 Vital Signs Provider: Reviewed; Within Normal Limits IP Chief Complaint: Maternal discomfort Dilatation, Provider: 0 Effacement, Provider: 0 Station, Provider: -3 Genitourinary Exam: Normal DTRs - PN: Normal
[2017-06-16 11:53] LABS: RBC URINE 1 /hpf (0-3); URINE BILIRUBIN NEGATIVE (NEGATIVE); URINE BLOOD NEGATIVE (NEGATIVE); URINE COLOR Yellow (YELLOW); URINE GLUCOSE (UA) NORMAL (Normal); URINE KETONE NEGATIVE (NEGATIVE); URINE LEUKOCYTE ESTERASE NEG Leu/uL (Negative); URINE PROTEIN NEGATIVE (NEGATIVE); URINE UROBILINOGEN NORMAL mg/dL (0.2-1.0); WBC URINE 1 /hpf (0-5)
--- NOTE | 2017-06-16 12:23 | OBHP ---
Datetime: 06/16/2017 11:16 Admit Comment, IP Provider: at 20+weeks came with c/o pain in the abdomen started in the mornin g abnd c/o pelvic pressure, no vb, lof,+fm. obhx 3 x pmh de med pnv all nkda psh de soch de ve closed a/p at 20+weeks r/o uti ua cont michelle cont close observa 12.30 ua neg pt feels good. plan dc homwe po hyration no sex f/u in 1week EGA AdmitDate IP: 20.5
--- NOTE | 2017-06-16 12:25 | OBDCSUM ---
Datetime: 06/16/2017 12:23 Discharged to, Provider: Home Follow up at, Provider: 1week Follow up in weeks, Provider: clinic Disch Activity Restrictions: No sexual activity; Nothing in vagina - [place], tampons, douche Discharge Comment, Provider: dc homwe po hyration no sex f/u in 1week Discharge Diagnosis Prov Other: 20 week pelvic pressure
[2017-06-17 12:46] VITALS: BP 95/55; PULSE 66; RESP 18; TEMP 97.7; O2SAT 100
== END 2017-06-16 12:34 | disposition home or self-care (01) ==
LOC: C.EROB 11:00
DX: O26.892 Other specified pregnancy related conditions, second trimester (principal); R10.9 Unspecified abdominal pain; Z3A.20 20 weeks gestation of pregnancy

== ENCOUNTER 2017-07-11 21:19 | Emergency (ER) | payer OTHER ==
[2017-07-11 21:52] VITALS: BMI 28.4
[2017-07-11 22:07] LABS: RBC URINE 13 /hpf (0-3); URINE BACTERIA RARE (<OCC); URINE BILIRUBIN NEGATIVE (NEGATIVE); URINE BLOOD NEGATIVE (NEGATIVE); URINE COLOR Yellow (YELLOW); URINE GLUCOSE (UA) NORMAL (Normal); URINE KETONE NEGATIVE (NEGATIVE); URINE LEUKOCYTE ESTERASE NEG Leu/uL (Negative); URINE PROTEIN 1+ mg/dL (NEGATIVE); WBC URINE 1 /hpf (0-5)
--- NOTE | 2017-07-11 22:44 | OBHP ---
Datetime: 07/11/2017 21:55 IP Adm Impression: , intrauterine ; No Active Labor IP Admit Plan: Discharge home Admit Comment, IP Provider: 26 y.o. P3043, LMP unsure, [place] 10/29/16, EGA 24w 2d c/o vaginal pressure a nd pain, x 1 day, pain scale 7/10 - onset "while on vacation in [place] yesterday". Also, onset of l ow back pain today. No symptoms. (+) AFM; denies LOF, VB, Ctx. Last had intercourse 1 week ago. P renatal care: [facility]: 1) h/o "open heart surgery" at 2 months of age - correction of a heart murmur. Last cardiology evaluation 4 months ago. 2) h/o seizures - since "I was small". Last seizure 8 years ago. Was on keppra until beginning of this . Sees neurology every month P Ob: x 3: 1) 2008, male, 6lb 15oz, [facility]; 2) 2010, female, 7+ lbs, [facility]; 3) 2015, female, 7lb 15oz, [facility]. Spont Ab x 4: all first trimestre; no D_C. 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 PSH: 1) age 2 months, corrective cardiac surgery; 2) before in 2010, surgery for varicose ve ins NKDA Meds: PNV, folic acid - QD Soc Hx: denies tobacco, illicit drug or EtOH use. Engaged; with FOB 4 years. Lives with him and al l 4 children. Unemployed Fam Hx: Mother age 56 - complications of heart surgery. Father alive 60+ y.o. - cardiac disease; h/o ID; on blood thinner. One brother from unk cancer. P.E.: as above. WD; slightly unkempt; notable body odor, in NAD. Awake, alert, oriented to time, person and place. Pleasant and cooperative. Fiance present. Assessment: 26 y.o. P3043, 24w 2d pelvic pressure - R/O UTI. H/O corrective cardiac surgery; h/o seizures - well maintained on anti-epileptic until beginning of . FHR appropriate for gesta tional age. Clinically stable. Plan: 1) U/A 2) UDS 3) Observe Addendum: 2235 hours - U/A: pH 6.0; S.G. 1.032, hazy; leuk esterase neg, RBC 13; protein 1+ - UDS negative Assessment: Patient states no significant difference in how she's feeling; reassured no UTI. U/A w ith blood - most likely contamination. Advised to drink half her weight in ounces of water daily. Als o, to keep all scheduled appointments. Clinically stable. Plan: 1) Discharge home 2) Reviewed S/S PTL Pelvic Type - PN: Adequate Extremities - PN: Abnormal Abdomen - PN: Normal Back - PN: Normal Breast - PN: Not Done Lungs - PN: Normal Heart - PN: Normal Thyroid - PN: Not Done Neurologic - PN: Normal HEENT - PN: Normal General - PN: Normal FHR - Baseline A Provider: 140 Contraction Comments Provider: none Comments, ACOG Physical Exam: HEENT: poor dentition Back: no CVA tenderness Abdomen: Gravid. Soft. Non tender in all quadrants : significant labial varicosities Extremities: (+) varicose veins bilaterally All other systems reviewed and are negative Gestation - Est Wks by US: 24w 2d EGA AdmitDate IP: 24.2 Vital Signs Provider: Reviewed; Within Normal Limits IP Chief Complaint: Maternal discomfort NICHD Variability Prov Fetus A: Moderate 6-25bpm NICHD Accel Fetus A IP Provider: 10X10 NICHD Decel Fetus A IP Provider: None Dilatation, Provider: 0 Effacement, Provider: 0 Station, Provider: n/a Genitourinary Exam: Abnormal DTRs - PN: Not Done
[2017-07-12 02:51] VITALS: BP 106/68; PULSE 79; O2SAT 97
== END 2017-07-11 22:43 | disposition home or self-care (01) ==
LOC: C.EROB 21:19
DX: O26.892 Other specified pregnancy related conditions, second trimester (principal); R10.2 Pelvic and perineal pain; Z3A.24 24 weeks gestation of pregnancy

== ENCOUNTER 2018-02-28 11:13 | Emergency (ER) | payer OTHER ==
[2018-02-28 11:13] VITALS: BMI 28.4
[2018-02-28 11:22] VITALS: BP 92/64; PULSE 80; RESP 18; TEMP 98.5; O2SAT 96
--- NOTE | 2018-02-28 11:57 | C.PDOC ---
History Of Present Illness Patient is a 27 y/o female who presents to the ED with a complaint of intermittent right foot pain for the last 1 year. Pain worse with ambulation. Patient was previously evaluated and diagnosed with arthritis. Denies any new trauma, swelling, redness, or change in sensation. Took Ibuprofen prior to arrival with relief. Time Seen by Provider: 02/28/18 11:24 Chief Complaint (Nursing): Pain, Chronic History Per: Patient History/Exam Limitations: no limitations Onset/Duration Of Symptoms: Days (1 year), Intermittent Episodes Current Symptoms Are (Timing): Still Present Recent travel outside of the [place]: No Past Medical History Reviewed: Historical Data, Nursing Documentation, Vital Signs Vital Signs: Last Vital Signs Temp 98.5 F 02/28/18 11:20 Pulse 80 02/28/18 11:20 Resp 18 02/28/18 11:20 BP 92/64 L 02/28/18 11:20 Pulse Ox 96 02/28/18 14:01 - Medical History PMH: Anemia, Arthritis, Seizures (last seizure 6 years ago) Denies: Chronic Kidney Disease Surgical History: No Surg Hx Family History: States: No Known Family Hx - Social History Hx Tobacco Use: No Hx Alcohol Use: No Hx Substance Use: No - Immunization History Hx Tetanus Toxoid Vaccination: No Hx Influenza Vaccination: Yes Hx Pneumococcal Vaccination: No Review Of Systems Constitutional: Negative for: Fever, Chills Musculoskeletal: Positive for: Foot Pain (right foot) Neurological: Negative for: Weakness, Numbness, Incoordination Physical Exam - Physical Exam Appears: Non-toxic, No Acute Distress Skin: Normal Color, Warm, Dry, No Rash, No Ecchymosis, Other (No swelling or increased warmth) Head: Atraumatic, Normacephalic Eye(s): bilateral: Normal Inspection, EOMI Nose: Normal Oral Mucosa: Moist Neck: Normal ROM, Supple Chest: Symmetrical Respiratory: No Accessory Muscle Use Extremity: Normal ROM (x4), No Tenderness (Pt points to the dorsal aspect of the foot of where she gets the pain though nontender on palpation), No Pedal Edema, No Calf Tenderness, Capillary Refill (< 2 sec), No Deformity, No Swelling , Other (negative erythema to right foot) Extremity: Bilateral: Normal Color And Temperature, Normal ROM Pulses: Left Dorsalis Pedis: Normal, Right Dorsalis Pedis: Normal Neurological/Psych: Oriented x3, Normal Speech, Normal Cognition, Normal Motor, Normal Sensation Gait: Steady ED Course And Treatment O2 Sat by Pulse Oximetry: 96 Progress Note: Pt offered pain medication and XR, pt declined. Discussed prevention and follow up with pierce and shave press operator. Disposition - Disposition Referrals: Moshe Gandara DPM [[facility]] - Disposition: HOME/ ROUTINE Disposition Time: 11:55 Condition: STABLE Additional Instructions: Rest, ice and elevate the area. Put shoe supports in your shoes. Follow up with your pierce and shave press operator in 1-2 days. Prescriptions: Naproxen [Naprosyn] 1 tab PO BID PRN #20 tab PRN Reason: Pain Instructions: Foot Sprain (DC) Forms: [employer] (Sinhala) - Clinical Impression Clinical Impression: Foot sprain - Scribe Statement The provider has reviewed the documentation as recorded by the Scribe Sheron Null All medical record entries made by the Scribe were at my direction and personally dictated by me. I have reviewed the chart and agree that the record accurately reflects my personal performance of the history, physical exam, medical decision making, and the department course for this patient. I have also personally directed, reviewed, and agree with the discharge instructions and disposition.
== END 2018-02-28 12:05 | disposition home or self-care (01) ==
LOC: C.ER 11:13
DX: S93.601A Unspecified sprain of right foot, initial encounter (principal); X58.XXXA Exposure to other specified factors, initial encounter; Y92.9 Unspecified place or not applicable

== ENCOUNTER 2018-05-19 11:34 | Emergency (ER) | payer OTHER ==
[2018-05-19 11:35] VITALS: BMI 28.4
[2018-05-19 11:45] VITALS: BP 107/68; PULSE 52; RESP 18; TEMP 97.7; O2SAT 100
--- NOTE | 2018-05-19 12:15 | C.PDOC ---
History Of Present Illness 27 year old female presents to the ER with a complaint of left lower back pain that began this morning when she woke up, as well as right foot pain which is chronic. Patient was seen previously in the ER for the right foot pain, was instructed to follow up with podiatry. However patient admits she missed her appointment and lost the follow up information. Patient is currently 10 weeks , . She denies abdominal/pelvic pain, vaginal bleeding/discharge or dysuria/hematuria. Time Seen by Provider: 05/19/18 11:42 Chief Complaint (Nursing): Back Pain History Per: Patient History/Exam Limitations: no limitations Onset/Duration Of Symptoms: Hrs Current Symptoms Are (Timing): Still Present Quality Of Discomfort: Unable To Describe Severity: Mild Previous Symptoms: Chronic Pain (Right foot) Associated Symptoms: None. denies: Incontinence, New Weakness, New Numbness Exacerbating Factor(s): Nothing, Movement Recent travel outside of the [place]: No Past Medical History Reviewed: Historical Data, Nursing Documentation, Vital Signs Vital Signs: Last Vital Signs Temp 97.7 F 05/19/18 11:44 Pulse 52 L 05/19/18 11:44 Resp 18 05/19/18 12:42 BP 107/68 05/19/18 11:44 Pulse Ox 100 05/19/18 17:33 - Medical History PMH: Anemia, Arthritis, Seizures (last seizure 6 years ago) Family History: States: No Known Family Hx - Social History Hx Tobacco Use: No Hx Alcohol Use: No Hx Substance Use: No - Immunization History Hx Tetanus Toxoid Vaccination: No Hx Influenza Vaccination: Yes Hx Pneumococcal Vaccination: No Review Of Systems Constitutional: Negative for: Fever, Chills Cardiovascular: Negative for: Chest Pain Respiratory: Negative for: Cough, Shortness of Breath Gastrointestinal: Negative for: Nausea, Vomiting, Abdominal Pain, Diarrhea Genitourinary: Negative for: Dysuria, Hematuria, Vaginal Discharge, Vaginal Bleeding Musculoskeletal: Positive for: Back Pain, Foot Pain Skin: Negative for: Rash Neurological: Negative for: Weakness, Numbness Physical Exam - Physical Exam Appears: Well, Non-toxic, No Acute Distress Skin: Normal Color, Warm, Dry, No Rash Head: Atraumatic, Normacephalic Eye(s): bilateral: Normal Inspection Oral Mucosa: Moist Cardiovascular: Rhythm Regular Respiratory: Normal Breath Sounds, No Rales, No Rhonchi, No Wheezing Gastrointestinal/Abdominal: Normal Exam, Bowel Sounds, Soft, No Tenderness, Other (Gravid) Back: No CVA Tenderness, No Vertebral Tenderness, Paraspinal Tenderness (Left lumbar ) Extremity: Normal ROM (x4), Tenderness (Mild diffuse TTP of right foot), No Calf Tenderness, Capillary Refill (<2 seconds all digits ), No Deformity, No Swelling, No Other (Erythema) Pulses: Left Dorsalis Pedis: Normal, Right Dorsalis Pedis: Normal Neurological/Psych: Oriented x3, Normal Motor, Normal Sensation Gait: Steady ED Course And Treatment O2 Sat by Pulse Oximetry: 100 (Room air) Pulse Ox Interpretation: Normal Progress Note: Patient given PO Tylenol for pain with improvement. She was instructed to follow up with podiatry within 1 week, and Rx for Tylenol given. Patient understands she should return to ED if she has any concerning symptoms. Reevaluation Time: 12:20 Reassessment Condition: Improved Disposition Counseled Patient/Family Regarding: Studies Performed, Diagnosis, Need For Followup, Rx Given - Disposition Referrals: Moshe Gandara DPM [[facility]] - Podiatry Clinic [Outside] Disposition: HOME/ ROUTINE Disposition Time: 12:20 Condition: STABLE Additional Instructions: FOLLOW UP WITH PODIATRY WITHIN 1 WEEK FOR YOUR CHRONIC RIGHT FOOT PAIN USE TYLENOL NEEDED FOR PAIN RETURN TO ER IF SYMPTOMS WORSEN Prescriptions: Acetaminophen [Tylenol 325mg tab] 650 mg PO Q6 PRN #30 tab PRN Reason: pain/fever Instructions: Low Back Pain (DC) Forms: [employer] (Qatari) Print Language: ITALIAN - POA Present On Arrival: None - Clinical Impression Clinical Impression: Pain, foot, right, chronic, Left low back pain - Scribe Statement The provider has reviewed the documentation as recorded by the Scribduane Perry All medical record entries made by the Scribe were at my direction and personally dictated by me. I have reviewed the chart and agree that the record accurately reflects my personal performance of the history, physical exam, medical decision making, and the department course for this patient. I have also personally directed, reviewed, and agree with the discharge instructions and disposition.
== END 2018-05-19 12:43 | disposition home or self-care (01) ==
LOC: C.ER 11:34
DX: O26.891 Other specified pregnancy related conditions, first trimester (principal); G89.29 Other chronic pain; M54.5 Low back pain; M79.671 Pain in right foot; Z3A.10 10 weeks gestation of pregnancy

== ENCOUNTER 2018-06-29 16:01 | Emergency (ER) | payer OTHER ==
[2018-06-29 16:02] VITALS: BMI 28.4
[2018-06-29] MEDS ORDERED: Sodium Chloride 0.9% 1,000 ML IV ONE ×3 (17:03→19:01)
[2018-06-29] MEDS ORDERED: Sodium Chloride 0.9% 1,000 ML ONE (17:12)
[2018-06-29 17:42] LABS: BASO % 0.4 % (0.0-2.0); EOS # 0.1 K/uL (0.0-0.7); EOS % 1.4 % (0.0-4.0); HEMOGLOBIN 10.4 g/dL (11.0-16.0); LYMPH # 1.8 K/uL (1.0-4.3); LYMPH % 30.4 % (20.0-40.0); MEAN CELL VOLUME 87.4 fL (81.0-99.0); MEAN CORPUSCULAR HEMOGLOBIN 29.5 pg (27.0-31.0); MEAN CORPUSCULAR HGB CONC 33.8 g/dL (33.0-37.0); MEAN PLATELET VOLUME 8.1 fL (7.2-11.7); MONO # 0.4 K/uL (0.0-0.8); MONO % 6.2 % (0.0-10.0); NEUT # 3.7 K/uL (1.8-7.0); NEUT % 61.6 % (50.0-75.0); RBC 3.54 Mil/uL (3.80-5.20); RED CELL DISTRIBUTION WIDTH 14.3 % (11.5-14.5)
[2018-06-29 17:50] LABS: SQUAMOUS EPITHIAL 17 /hpf (0-5); URINE BACTERIA RARE (<OCC); URINE BILIRUBIN NEGATIVE (NEGATIVE); URINE BLOOD NEGATIVE (NEGATIVE); URINE CLARITY Hazy (Clear); URINE COLOR Yellow (YELLOW); URINE GLUCOSE (UA) NORMAL (Normal); URINE LEUKOCYTE ESTERASE NEG Leu/uL (Negative); URINE PROTEIN NEGATIVE (NEGATIVE); URINE UROBILINOGEN NORMAL mg/dL (0.2-1.0)
[2018-06-29 18:02] LABS: ALB/GLOB RATIO 1.5 (1.0-2.1); ALBUMIN 4.1 g/dL (3.5-5.0); ALT/SGPT 21 U/L (9-52); AST/SGOT 8 U/L (14-36); BLOOD UREA NITROGEN 9 mg/dL (7-17); CALCIUM 8.7 mg/dl (8.6-10.4); GFR NON-AFRICAN AMERICAN > 60
--- NOTE | 2018-06-29 18:35 | C.PDOC ---
History Of Present Illness 27-year-old female , presents to the emergency department with complaints of mild weakness and generalized headache for the past few days. Denies any nausea/vomiting. Pt states she is taking Tylenol, last dose was yesterday. Patients last US was 2 weeks ago, and states it was "normal." No other complaints at this time. Chief Complaint (Nursing): Headache History Per: Patient History/Exam Limitations: no limitations Current Symptoms Are (Timing): Still Present Past Medical History Reviewed: Historical Data, Nursing Documentation, Vital Signs Vital Signs: Last Vital Signs Temp 98.4 F 06/29/18 16:19 Pulse 71 06/29/18 16:19 Resp 18 06/29/18 16:19 BP 102/65 06/29/18 16:19 Pulse Ox 100 06/29/18 16:19 - Medical History PMH: Anemia, Arthritis, Seizures Denies: Chronic Kidney Disease Family History: States: No Known Family Hx - Social History Hx Tobacco Use: No Hx Alcohol Use: No Hx Substance Use: No - Immunization History Hx Tetanus Toxoid Vaccination: No Hx Influenza Vaccination: No Hx Pneumococcal Vaccination: No Review Of Systems Constitutional: Positive for: Weakness Gastrointestinal: Negative for: Nausea, Vomiting, Abdominal Pain Genitourinary: Negative for: Dysuria, Hematuria, Vaginal Discharge, Vaginal Bleeding Neurological: Positive for: Headache Physical Exam - Physical Exam Appears: Non-toxic, No Acute Distress Skin: Warm, Dry, No Rash Head: Atraumatic, Normacephalic Eye(s): bilateral: Normal Inspection Nose: Normal Oral Mucosa: Moist Lips: Normal Appearing Neck: Normal ROM Cardiovascular: Rhythm Regular, No Murmur Respiratory: Normal Breath Sounds, No Accessory Muscle Use Gastrointestinal/Abdominal: Soft, No Tenderness, Other (fundus is 3-4inches below the umbilicus) Back: Normal Inspection Extremity: Normal ROM, No Deformity Neurological/Psych: Oriented x3, Normal Speech ED Course And Treatment - Laboratory Results Result Diagrams: 06/29/18 17:37 06/29/18 17:37 O2 Sat by Pulse Oximetry: 100 Pulse Ox Interpretation: Normal (RA) Disposition - [facility] - Disposition: HOME/ ROUTINE Disposition Time: 18:40 Condition: IMPROVED Additional Instructions: BENSON OKEEFE, thank you for letting us take care of you today. The emergency medical care you received today was directed at your acute symptoms. If you were prescribed any medication, please fill it and take as directed. It may take several days for your symptoms to resolve. Return to the Emergency Department if your symptoms worsen, do not improve, or if you have any other problems. Please contact your doctor or call one of the physicians/clinics you have been referred to that are listed on the Patient Visit Information form that is included in your discharge packet. Bring any paperwork you were given at discharge with you along with any medications you are taking to your follow up visit. Our treatment cannot replace ongoing medical care by a primary care provider outside of the emergency department. Thank you for allowing the [employer] team to be part of your care today. Follow up with your HOUSING QUALITY STANDARD INSPECTOR doctor this week as scheduled for re-evaluation. Instructions: - The Fourth Month Forms: [employer] (Welsh) - Clinical Impression Clinical Impression: Headache - Scribe Statement The provider has reviewed the documentation as recorded by the Scribe (Saniya briones) Provider Attestation: All medical record entries made by the Scribe were at my direction and personally dictated by me. I have reviewed the chart and agree that the record accurately reflects my personal performance of the history, physical exam, medical decision making, and the department course for this patient. I have also personally directed, reviewed, and agree with the discharge instructions and disposition.
[2018-06-29 19:20] VITALS: BP 104/74; PULSE 74; RESP 16; TEMP 98.7; O2SAT 96
--- NOTE | 2018-07-01 14:52 | CARD ---
APPROVED REPORT Date of service: 06/29/2018 EKG Measurement Heart [id number] <Conclusion> Normal sinus rhythm Right bundle branch block Minimal voltage criteria for LVH, may be normal variant Abnormal ECG
== END 2018-06-29 19:20 | disposition home or self-care (01) ==
LOC: C.ER 16:01
DX: R51 Headache (principal); D64.9 Anemia, unspecified
CPT/HCPCS: 80053; 81001; 85025; 87086; 93005; 96360; 99284; J7030

== ENCOUNTER 2018-07-05 14:57 | Emergency (ER) | payer OTHER ==
[2018-07-05 14:58] VITALS: BMI 28.4
[2018-07-05 15:08] VITALS: RESP 18; O2SAT 100
[2018-07-05] MEDS ORDERED: Sodium Chloride 0.9% 1,000 ML IV ONE (15:18)
[2018-07-05] MEDS ORDERED: Sodium Chloride 0.9% 1,000 ML ONE (15:28)
[2018-07-05 15:57] LABS: BASO % 0.4 % (0.0-2.0); EOS # 0.1 K/uL (0.0-0.7); EOS % 1.2 % (0.0-4.0); HEMOGLOBIN 10.4 g/dL (11.0-16.0); LYMPH # 1.6 K/uL (1.0-4.3); LYMPH % 31.8 % (20.0-40.0); MEAN CELL VOLUME 87.8 fL (81.0-99.0); MEAN CORPUSCULAR HEMOGLOBIN 29.5 pg (27.0-31.0); MEAN CORPUSCULAR HGB CONC 33.6 g/dL (33.0-37.0); MEAN PLATELET VOLUME 8.6 fL (7.2-11.7); MONO # 0.4 K/uL (0.0-0.8); NEUT % 59.6 % (50.0-75.0); RBC 3.52 Mil/uL (3.80-5.20); RED CELL DISTRIBUTION WIDTH 13.8 % (11.5-14.5); WHITE BLOOD COUNT 5.1 K/uL (4.8-10.8)
[2018-07-05 16:12] LABS: SQUAMOUS EPITHIAL 2 /hpf (0-5); URINE BACTERIA RARE (<OCC); URINE BILIRUBIN NEGATIVE (NEGATIVE); URINE BLOOD 1+ (NEGATIVE); URINE CLARITY Clear (Clear); URINE COLOR Yellow (YELLOW); URINE GLUCOSE (UA) NORMAL (Normal); URINE LEUKOCYTE ESTERASE NEG Leu/uL (Negative); URINE PROTEIN NEGATIVE (NEGATIVE); URINE UROBILINOGEN NORMAL mg/dL (0.2-1.0)
[2018-07-05 16:42] LABS: ALB/GLOB RATIO 1.5 (1.0-2.1); ALBUMIN 4.2 g/dL (3.5-5.0); ALT/SGPT 20 U/L (9-52); AST/SGOT 10 U/L (14-36); BLOOD UREA NITROGEN 8 mg/dL (7-17); CALCIUM 9.1 mg/dl (8.6-10.4); GFR NON-AFRICAN AMERICAN > 60
--- NOTE | 2018-07-05 17:20 | C.PDOC ---
History Of Present Illness 27-year-old female, (17-weeks ), presents to the emergency department with complaints of epigastric abdominal cramping that is associated with vaginal bleeding this morning. Patient denies any vomiting, diarrhea, fever, or any other associated symptoms. No other complaints at this time. Time Seen by Provider: 07/05/18 15:05 Chief Complaint (Nursing): Abdominal Pain History Per: Patient History/Exam Limitations: no limitations Onset/Duration Of Symptoms: Hrs Current Symptoms Are (Timing): Still Present Past Medical History Reviewed: Historical Data, Nursing Documentation, Vital Signs Vital Signs: Last Vital Signs Temp 97.6 F 07/05/18 15:04 Pulse 62 07/05/18 15:04 Resp 18 07/05/18 15:04 BP 110/73 07/05/18 15:04 Pulse Ox 100 07/05/18 15:04 - Medical History PMH: Anemia, Arthritis, Seizures Denies: Chronic Kidney Disease Family History: States: No Known Family Hx - Social History Hx Tobacco Use: No Hx Alcohol Use: No Hx Substance Use: No - Immunization History Hx Tetanus Toxoid Vaccination: No Hx Influenza Vaccination: No Hx Pneumococcal Vaccination: No Review Of Systems Constitutional: Negative for: Fever, Chills Cardiovascular: Negative for: Chest Pain, Palpitations, Edema Respiratory: Negative for: Shortness of Breath Gastrointestinal: Positive for: Abdominal Pain. Negative for: Nausea, Vomiting Genitourinary: Positive for: Vaginal Bleeding. Negative for: Dysuria Physical Exam - Physical Exam Appears: Non-toxic, No Acute Distress Skin: Warm, Dry, No Rash Head: Atraumatic, Normacephalic Eye(s): bilateral: Normal Inspection Nose: Normal Oral Mucosa: Moist Lips: Normal Appearing Neck: Normal ROM Cardiovascular: Rhythm Regular, No Murmur Respiratory: Normal Breath Sounds, No Accessory Muscle Use Gastrointestinal/Abdominal: Soft, Tenderness (mild, epigastric), No Guarding, No Rebound, Other (Gravid) Extremity: Normal ROM, No Deformity Neurological/Psych: Oriented x3, Normal Speech ED Course And Treatment - Laboratory Results Result Diagrams: 07/05/18 15:49 07/05/18 15:49 O2 Sat by Pulse Oximetry: 100 Pulse Ox Interpretation: Normal (RA) Progress Note: Bloodwork, UA and ultrasound ordered and reviewed. patient treayed with IVF and Pepcid Disposition Counseled Patient/Family Regarding: Studies Performed, Diagnosis, Need For Followup, Rx Given - Disposition Referrals: [facility] [Outside] Disposition: HOME/ ROUTINE Disposition Time: 18:30 Condition: STABLE Additional Instructions: FOLLOW UP WITH YOUR ACCOUNTS PAYABLE PROFESSIONAL WITHIN 1 WEEK RETURN TO ER IF SYMPTOMS WORSEN Instructions: Bleeding With (DC) Forms: [employer] (Polish) Print Language: [place] - POA Present On Arrival: None - Clinical Impression Clinical Impression: Vaginal bleeding during - Scribe Statement The provider has reviewed the documentation as recorded by the Scribe (Saniya De Santiago) Provider Attestation: All medical record entries made by the Scribe were at my direction and personally dictated by me. I have reviewed the chart and agree that the record accurately reflects my personal performance of the history, physical exam, medical decision making, and the department course for this patient. I have also personally directed, reviewed, and agree with the discharge instructions and disposition.
--- NOTE | 2018-07-05 17:35 | C.PDOC ---
Time Seen by Provider: 07/05/18 15:05 Chief Complaint (Nursing): Abdominal Pain Past Medical History Vital Signs: Last Vital Signs Temp 97.6 F 07/05/18 15:04 Pulse 62 07/05/18 15:04 Resp 18 07/05/18 15:04 BP 110/73 07/05/18 15:04 Pulse Ox 100 07/05/18 15:04 - Medical History PMH: Anemia, Arthritis, Seizures Denies: Chronic Kidney Disease Family History: States: Unknown Family Hx - Social History Hx Tobacco Use: No Hx Alcohol Use: No Hx Substance Use: No - Immunization History Hx Tetanus Toxoid Vaccination: No Hx Influenza Vaccination: No Hx Pneumococcal Vaccination: No ED Course And Treatment - Laboratory Results Result Diagrams: 07/05/18 15:49 07/05/18 15:49 O2 Sat by Pulse Oximetry: 100 Disposition - Disposition
--- NOTE | 2018-07-05 17:43 | US ---
Indication: Bleeding, Comparison: 1st trimester ultrasound performed 06/11/18 Technique: Real-time ultrasound was performed through the pelvis. Findings: There is a single living fetus in variablepresentation. Amniotic fluid volume is within normal limits. Posterior placenta. The placenta is not previa. There are no adnexal masses or cysts evident. Cervix length measures approximately 3.7 cm. Measurements and calculations: Fetus has a composite sonographic age of 16 weeks 5 days. This calculation is based on the biparietal diameter, head circumference, abdominal circumference, and femur length. Estimated heart rate 150.2 beats per min. Estimated weight 170.1 g. Impression: Single living fetus with a composite sonographic age of 16 weeks 5 days. Estimated heart rate 150.2 beats per min. Advise an outpatient anomaly screen at 16-18 weeks gestational age.
[2018-07-05 18:58] VITALS: BP 100/65; PULSE 70; TEMP 98.4
== END 2018-07-05 18:58 | disposition home or self-care (01) ==
LOC: C.ER 14:57
DX: O20.9 Hemorrhage in early pregnancy, unspecified (principal); Z3A.16 16 weeks gestation of pregnancy
CPT/HCPCS: 76815; 80053; 81001; 82948; 84702; 85025; 86850; 86900; 93005; 99284; J7030

== ENCOUNTER 2018-07-31 08:48 | Emergency (ER) | payer OTHER ==
[2018-07-31 08:49] VITALS: BMI 28.4
[2018-07-31 08:56] VITALS: RESP 18; O2SAT 100
[2018-07-31 09:54] LABS: SQUAMOUS EPITHIAL 17 /hpf (0-5); URINE BACTERIA RARE (<OCC); URINE BILIRUBIN NEGATIVE (NEGATIVE); URINE BLOOD NEGATIVE (NEGATIVE); URINE CLARITY Hazy (Clear); URINE COLOR Yellow (YELLOW); URINE GLUCOSE (UA) NORMAL (Normal); URINE LEUKOCYTE ESTERASE NEG Leu/uL (Negative); URINE PROTEIN NEGATIVE (NEGATIVE); URINE UROBILINOGEN NORMAL mg/dL (0.2-1.0)
--- NOTE | 2018-07-31 10:07 | C.PDOC ---
History Of Present Illness 27 years old, 20 weeks female,A4, presents to ED today for complaints of cold like symptoms including nasal congestion, clear rhinorrhea, bodyaches, and headache. Patient states she did not take any medications for relief. Patient reports positive sick contacts; both son and daughter with +URI. Patient also reports baby is moving well. Pt c/o mild dysuria x 1 day. Denies GI complaints, cough, fever, hematuria, or vaginal discharge. Time Seen by Provider: 07/31/18 08:56 Chief Complaint (Nursing): Flu-like Symptoms History Per: Patient History/Exam Limitations: no limitations Onset/Duration Of Symptoms: Hrs Current Symptoms Are (Timing): Still Present Location Of Pain: Headache Sick Contacts (Context): Family Member(s) (Both children(Son and Daughter) ) Associated Symptoms: Nasal Congestion. denies: Fever, Chills, Cough Ear Symptoms: Bilateral: None Recent travel outside of the [place]: No Past Medical History Reviewed: Historical Data, Nursing Documentation, Vital Signs Vital Signs: Last Vital Signs Temp 97.7 F 07/31/18 08:51 Pulse 89 07/31/18 08:51 Resp 18 07/31/18 08:51 BP 97/63 L 07/31/18 08:51 Pulse Ox 100 07/31/18 08:51 - Medical History PMH: Anemia, Arthritis, Seizures Family History: States: No Known Family Hx - Social History Hx Tobacco Use: No Hx Alcohol Use: No Hx Substance Use: No - Immunization History Hx Tetanus Toxoid Vaccination: No Hx Influenza Vaccination: No Hx Pneumococcal Vaccination: No Review Of Systems Constitutional: Positive for: Malaise. Negative for: Fever, Chills ENT: Positive for: Nose Congestion, Other (Clear rhinorrhea) Respiratory: Negative for: Cough Genitourinary: Positive for: Dysuria. Negative for: Frequency, Incontinence, Hematuria, Vaginal Discharge, Vaginal Bleeding, Pelvic Pain Skin: Negative for: Rash Neurological: Positive for: Headache. Negative for: Weakness, Numbness Physical Exam - Physical Exam Appears: Well, Non-toxic, No Acute Distress Skin: Normal Color, Warm, Dry, No Rash Head: Atraumatic, Normacephalic Eye(s): bilateral: Normal Inspection, PERRL, EOMI Ear(s): Bilateral: Normal Nose: Normal, No Discharge Oral Mucosa: Moist Tongue: Normal Appearing Lips: Normal Appearing Throat: Normal, No Erythema, No Exudate, No Drooling, No Mass Neck: Normal ROM, Supple Chest: Symmetrical, No Tenderness Cardiovascular: Rhythm Regular, No Murmur Respiratory: Normal Breath Sounds, No Rales, No Rhonchi, No Wheezing Gastrointestinal/Abdominal: Bowel Sounds (Active ), Soft, No Tenderness, No Guarding, No Rebound, Other ( ) Back: Normal Inspection Extremity: Normal ROM Extremity: Bilateral: Atraumatic, Normal Color And Temperature, Normal ROM Neurological/Psych: Oriented x3, Normal Speech Gait: Steady ED Course And Treatment - Laboratory Results Lab Interpretation: Abnormal (rare bacteria in urine) O2 Sat by Pulse Oximetry: 100 (RA) Pulse Ox Interpretation: Normal Reassessment Condition: Improved Medical Decision Making Medical Decision Making: Plan: * Tylenol for Headache * Urinalysis * Flu AB Swab negative Urinalysis: * Showed Rare Bacteria Present so will ordered Urine Culture and treat dysuria with keflex. Disposition Counseled Patient/Family Regarding: Studies Performed, Diagnosis, Need For Followup, Rx Given - Disposition Referrals: Non [facility] Provider, [Non-Staff] - Disposition: HOME/ ROUTINE Disposition Time: 10:24 Condition: STABLE Additional Instructions: FOLLOW UP WITH YOUR TELESALES MANAGER IN 1-2 DAYS FOR RE-EVALUATION. TAKE TYLENOL 500 MG EVERY 4-6 HRS NEEDED FOR PAIN. URINE CULTURE WAS SENT AND PENDING. DRINK PLENTY OF WATER AND CRANBERRY JUICE. IF SYMPTOMS GET WORSE OR ANY NEW CONCERNING SYMPTOMS DEVELOP RETURN TO ED. Prescriptions: Cephalexin [cephalexin] 500 mg PO BID #10 cap Sodium Chloride [[facility] Saline Nasal Peel 44 ] 2 spray NS Q4H PRN #1 spr PRN Reason: Nasal Congestion Instructions: Urinary Tract Infection, Adult (DC), Viral Upper Respiratory Infection, Adult (DC) Forms: [facility] [employer] (Maltese), General Discharge Instructions - Clinical Impression Clinical Impression: Viral upper respiratory illness, UTI (urinary tract infection) during - PA / DIGESTER OPERATOR / Resident Statement MD/DO has reviewed & agrees with the documentation as recorded. - Scribe Statement The provider has reviewed the documentation as recorded by the Lilliibduane Stratton All medical record entries made by the Lilliibduane were at my direction and personally dictated by me. I have reviewed the chart and agree that the record accurately reflects my personal performance of the history, physical exam, medical decision making, and the department course for this patient. I have also personally directed, reviewed, and agree with the discharge instructions and disposition.
[2018-07-31 10:44] VITALS: BP 105/68; PULSE 77; TEMP 98.4
== END 2018-07-31 10:44 | disposition home or self-care (01) ==
LOC: C.ER 08:48
DX: O26.892 Other specified pregnancy related conditions, second trimester (principal); J06.9 Acute upper respiratory infection, unspecified; O23.42 Unspecified infection of urinary tract in pregnancy, second trimester; Z3A.20 20 weeks gestation of pregnancy